=== PATIENT | female | born 1995 | race African-American/Black ===

== ENCOUNTER → 2016-09-11 | Outpatient (CLI) | payer BC, OTHER | LOC: EDBD → MW.CHOBGYN 09:59 | PROVIDERS: ATTEND Advanced Practice Midwife | DX: Z34.90 Encounter for supervision of normal pregnancy, unspecified, unspecified trimester (principal) | CPT/HCPCS: 36415; 82950; 85027; 86850 ==

== ENCOUNTER 2016-10-31 14:04 | Emergency (ER) | payer OTHER, SELFPAY ==
[2016-10-31] MEDS ORDERED: Albuterol 0.083% 2.5 MG/3 ML Neb Soln NEB ONE (14:14)
--- NOTE | 2016-10-31 14:15 | EDM.PDOC ---
ED HISTORY OF PRESENT ILLNESS - General Chief Complaint: Respiratory Problem Stated Complaint: HEART COMPLICATION Time Seen by Provider: 10/31/16 15:00 - History of Present Illness INITIAL COMMENTS - FREE TEXT/NARRATIVE: HISTORY AND PHYSICAL: History of present illness: Patient is a 20-year-old black female who is 35 weeks presents with shortness of breath and dizziness she states she noticed this today while she was at class she denies nausea vomiting abdominal pain abdominal cramping vaginal discharge bleeding any significant changes in peripheral edema headache visual disturbance or any other concern. There been no cough no fever no chills Review of systems: As per history of present illness and below otherwise all systems reviewed and negative. Past medical history: As per history of present illness and as reviewed below otherwise noncontributory. Surgical history: As per history of present illness and as reviewed below otherwise noncontributory. Social history: No reported history of drug or alcohol abuse. Family history: As per history of present illness and as reviewed below otherwise noncontributory. Physical exam: HEENT: Atraumatic, normocephalic, pupils reactive, negative for conjunctival pallor or scleral icterus, mucous membranes moist, throat clear, neck supple, nontender, trachea midline. Lungs: Clear to auscultation, breath sounds equal bilaterally, chest nontender. Heart: S1S2, regular, negative for clicks, rubs, or JVD. Abdomen: Soft, gravid uterus consistent with dates nontender heart tones in the. Negative for masses or hepatosplenomegaly. Negative for costovertebral tenderness. Pelvis: Stable nontender. Genitourinary: Deferred. Rectal: Deferred. Extremities: Atraumatic, negative for cords or calf pain. Neurovascular unremarkable. 1+ edema inferior extremity Neuro: Awake, alert, oriented. Cranial nerves II through XII unremarkable. Cerebellum unremarkable. Motor and sensory unremarkable throughout. Exam nonfocal. Diagnostics: CBC CMP BNP EKG chest x-ray with abdominal shield one view UA Therapeutics: Albuterol nebulizer Impression: #1 dyspnea #2 35 week intrauterine Definitive disposition and diagnosis as appropriate pending reevaluation and review of above. - Related Data Allergies/ADRs: Allergies Allergy/AdvReac Type Severity Reaction Status Date / Time No Known Allergies Allergy Verified 10/31/16 14:09 Home Meds: Home Meds . [No Known Home Meds] 08/22/15 [History] Past Medical History - Past Health History Medical/Surgical History: Denies Medical/Surgical History Psychiatric History: Reports: None Hematologic History: Reports: None Immunologic History: Reports: None Oncologic (Cancer) History: Reports: None - Infectious Disease History Infectious Disease History: Reports: None Social & Family History - Tobacco Use Smoking Status *Q: Never Smoker - Caffeine Use Caffeine Use: Reports: None - Recreational Drug Use Recreational Drug Use: No ED ROS GENERAL - Review of Systems Review Of Systems: ROS reveals no pertinent complaints other than HPI. ED EXAM, GENERAL - Physical Exam Exam: See Below Course - Vital Signs Text/Narrative:: Status with patient at length risks benefits regarding symptoms patient declined CT Angio to rule pulmonary embolism Chest x-ray states she feels better request discharge home does agree to followup with labor and delivery discussed case with licensed midwife who understands and will follow also Last Recorded V/S: Last Vital Signs Temp 36.4 C 10/31/16 14:09 Pulse 73 10/31/16 14:09 Resp 20 10/31/16 14:09 BP 123/99 H 10/31/16 14:09 Pulse Ox 100 10/31/16 14:09 - Orders/Labs/Meds Orders: Active Orders 24 hr Category Date Time Status EKG Documentation Completion [RC] STAT Care 10/31/16 14:14 Active RT Aerosol Therapy [RC] ASDIRECTED Care 10/31/16 14:15 Active Labs: Laboratory Tests 10/31/16 10/31/16 10/31/16 Range/Units 14:25 14:25 14:25 WBC 7.34 (4.0-11.0) K/uL RBC 4.22 L (4.30-5.90) M/uL Hgb 11.0 L (12.0-16.0) g/dL Hct 34.2 L (36.0-46.0) % MCV 81.0 (80.0-98.0) fL MCH 26.1 L (27.0-32.0) pg MCHC 32.2 (31.0-37.0) g/dL RDW Std Deviation 43.0 (28.0-62.0) fl RDW Coeff of Arelis 15 (11.0-15.0) % Plt Count 209 (150-400) K/uL MPV 9.60 (7.40-12.00) fL Neut % (Auto) 65.6 (48.0-80.0) % Lymph % (Auto) 22.8 (16.0-40.0) % Zavala % (Auto) 10.5 (0.0-15.0) % Eos % (Auto) 1.0 (0.0-7.0) % Baso % (Auto) 0.1 (0.0-1.5) % Neut # (Auto) 4.8 (1.4-5.7) K/uL Lymph # (Auto) 1.7 (0.6-2.4) K/uL Zavala # (Auto) 0.8 (0.0-0.8) K/uL Eos # (Auto) 0.1 (0.0-0.7) K/uL Baso # (Auto) 0.0 (0.0-0.1) K/uL Nucleated RBC % 0.0 /100WBC Nucleated RBCs # 0 K/uL Sodium 135 L (136-146) mmol/L Potassium 3.7 (3.5-5.1) mmol/L Chloride 107 (98-110) mmol/L Carbon Dioxide 22 (21-31) mmol/L BUN 4 L (6.0-23.0) mg/dL Creatinine 0.7 (0.6-1.5) mg/dL Est Cr Clr Drug Dosing 119.01 mL/min Estimated GFR (MDRD) > 60.0 ml/min Glucose 77 (60-110) mg/dL Calcium 9.1 (8.8-10.8) mg/dL Total Bilirubin 0.4 (0.1-1.5) mg/dL AST 20 (5-40) IU/L ALT 12 (8-54) IU/L Alkaline Phosphatase 264 H (40-150) B-Natriuretic Peptide 20 (<100) PG/ML Total Protein 6.5 (6.0-8.0) g/dL Albumin 3.4 L (3.5-5.0) g/dL Globulin 3.1 (2.0-3.5) g/dL Albumin/Globulin Ratio 1.1 L (1.3-2.8) Meds: Medications Discontinued Medications Generic Name Dose Route Start Last Admin Trade Name Freq PRN Reason Stop Dose Admin Albuterol 2.5 mg 10/31/16 14:14 10/31/16 14:24 Proventil Neb Soln NEB 10/31/16 14:15 2.5 mg ONETIME ONE Administration Departure - Departure Time of Disposition: 14:59 Disposition: Home, Self-Care 01 Condition: good Clinical Impression: Dyspnea, Third trimester Forms: ED Department Discharge Additional Instructions: The following information is given to patients seen in the emergency department who are being discharged to home. This information is to outline your options for follow-up care. We provide all patients seen in our emergency department with a follow-up referral. The need for follow-up, as well as the timing and circumstances, are variable depending upon the specifics of your emergency department visit. If you don't have a primary care physician on staff, we will provide you with a referral. We always advise you to contact your personal physician following an emergency department visit to inform them of the circumstance of the visit and for follow-up with them and/or the need for any referrals to a consulting specialist. The emergency department will also refer you to a specialist when appropriate. This referral assures that you have the opportunity for followup care with a specialist. All of these measure are taken in an effort to provide you with optimal care, which includes your followup. Under all circumstances we always encourage you to contact your private physician who remains a resource for coordinating your care. When calling for followup care, please make the office aware that this follow-up is from your recent emergency room visit. If for any reason you are refused follow-up, please contact the [facility] emergency department at and asked to speak to the emergency department charge nurse. Followup labor and delivery as discussed return as needed as discussed - My Orders Last 24 Hours: My Active Orders 10/31/16 14:14 EKG Documentation Completion [RC] STAT 10/31/16 14:15 RT Aerosol Therapy [RC] ASDIRECTED - Assessment/Plan Last 24 Hours: My Active Orders 10/31/16 14:14 EKG Documentation Completion [RC] STAT 10/31/16 14:15 RT Aerosol Therapy [RC] ASDIRECTED
[2016-10-31 14:49] LABS: CHLORIDE,CL 107 mmol/L (98-110); SODIUM,NA 135 mmol/L (136-146)
[2016-10-31 15:27] VITALS: BP 113/72
== END 2016-10-31 15:23 | disposition home or self-care (01) ==
LOC: EDBD → MW.ED 14:04
DX: O99.513 Diseases of the respiratory system complicating pregnancy, third trimester (principal); R06.00 Dyspnea, unspecified
CPT/HCPCS: 36415; 80053; 83880; 85025; 93005; 94664; 99283; 99285-25

== ENCOUNTER 2016-10-31 15:42 | Outpatient (CLI) | payer OTHER, SELFPAY | END 2016-10-31 16:50 | disposition home or self-care (01) | LOC: EDBD → MW.OBCHECK 15:42 → MW.OB 15:43 → MW.OBCHECK 16:50 | PROVIDERS: ATTEND Obstetrics & Gynecology | DX: Z34.93 Encounter for supervision of normal pregnancy, unspecified, third trimester (principal) | CPT/HCPCS: 59025 ==

== ENCOUNTER → 2016-11-07 | Outpatient (CLI) | payer MEDICAID, OTHER | LOC: EDBD → MW.CHOBGYN 13:21 | PROVIDERS: ATTEND Advanced Practice Midwife | DX: Z34.90 Encounter for supervision of normal pregnancy, unspecified, unspecified trimester (principal) | CPT/HCPCS: 87081 ==

== ENCOUNTER → 2016-11-18 | Outpatient (CLI) | payer MEDICAID, OTHER ==
[2016-11-18 14:29] LABS: CHLORIDE,CL 108 mmol/L (98-110); SODIUM,NA 137 mmol/L (136-146)
== END ==
LOC: EDBD → MW.CHOBGYN 13:34
PROVIDERS: ATTEND Nurse Practitioner Women's Health
DX: R19.7 Diarrhea, unspecified (principal)
CPT/HCPCS: 36415; 80053; 81001; 83630; 85025; 87046; 87328; 87329; 87899

== ENCOUNTER 2016-12-05 16:13 | Inpatient (IN) | payer MEDICAID ==
[2016-12-05] MEDS ORDERED: Water For Irrigation,Sterile 1,000 ML Container IRR PRN (17:38)
[2016-12-05] MEDS ORDERED: Misoprostol 25 MCG (1/4 of 100 MCG) Tab VAG PRN ×2 (17:38→22:00)
[2016-12-05] MEDS ORDERED: Sodium Chloride 0.9% 10 ML Syringe FLUSH PRN (17:38)
[2016-12-05] MEDS ORDERED: Carboprost Tromethamine 250 MCG/1 ML Amp IM PRN (17:38)
[2016-12-05] MEDS ORDERED: Lidocaine 1% 50 ML MDV INJECT PRN (17:38)
[2016-12-05] MEDS ORDERED: Misoprostol 200 MCG Tab PO PRN (17:38)
[2016-12-05] MEDS ORDERED: Sodium Chloride 0.9% 2.5 ML Syringe FLUSH PRN (17:38)
[2016-12-05] MEDS ORDERED: Nalbuphine 10 MG/1 ML Vial IVPUSH PRN (17:38)
[2016-12-05] MEDS ORDERED: Terbutaline 1 MG/ML SDV SUBCUT PRN (17:38)
[2016-12-05] MEDS ORDERED: Butorphanol 1 MG/ML SDV IVPUSH PRN (17:38)
[2016-12-05] MEDS ORDERED: Methylergonovine 0.2 MG/1 ML Amp IM PRN (17:38)
[2016-12-05] MEDS ORDERED: Misoprostol 25 MCG (1/4 of 100 MCG) Tab PO SCH (17:45)
[2016-12-05] MEDS ORDERED: Oxytocin/Lactated Ringers 30 UNIT/500 ML BAG IV SCH (17:45)
[2016-12-05] MEDS: Lactated Ringers 1,000 ML IV SCH (18:15)
--- NOTE | 2016-12-05 18:56 | PCM.LDHP ---
L&D History of Present Illness - General Date of Service: 12/05/16 Admit Problem/Dx: Patient Status Order with Admit Dx/Problem 12/05/16 16:41 Patient Status [ADT] Routine 12/05/16 17:38 Patient Status [ADT] Routine Admission Diagnosis/Problem Admission Diagnosis/Problem - planned Source of Information: Patient History Limitations: Reports: No Limitations - History of Present Illness Improves with: Reports: None Worsens with: Reports: None Associated Symptoms: Reports: N - Related Data Allergies/Adverse Reactions: Allergies Allergy/AdvReac Type Severity Reaction Status Date / Time No Known Allergies Allergy Verified 10/31/16 14:09 Home Medications: Home Meds . 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) Other OB/BYN History: Hx of Chlamydia during this Psychiatric History: Reports: None Hematologic History: Reports: None Immunologic History: Reports: None Oncologic (Cancer) History: Reports: None - Infectious Disease History Infectious Disease History: Reports: None - Past Surgical History Respiratory Surgical History: Reports: None Female Surgical History: Reports: None Social & Family History - Family History Family Medical History: Noncontributory Dermatologic: Reports: None - Tobacco Use Smoking Status *Q: Never Smoker Second Hand Smoke Exposure: No - Caffeine Use Caffeine Use: Reports: Coffee - Recreational Drug Use Recreational Drug Use: No H&P Review of Systems - Review of Systems: Review Of Systems: See Below General: Reports: No Symptoms HEENT: Reports: No Symptoms Pulmonary: Reports: No Symptoms Cardiovascular: Reports: No Symptoms Gastrointestinal: Reports: No Symptoms Genitourinary: Reports: No Symptoms Musculoskeletal: Reports: No Symptoms Skin: Reports: No Symptoms Psychiatric: Reports: No Symptoms Neurological: Reports: No Symptoms Hematologic/Lymphatic: Reports: No Symptoms Immunologic: Reports: No Symptoms L&D Exam - Exam Exam: See Below - Vital Signs Weight: 93.894 kg - OB Specific Contraction Intensity: Mild Movement: Active Heart Tones: Present Presentation: Vertex - Barton Score Barton Score Effacement: 31-50% Barton Score Dilation: 1-2 cm Barton Score 's Station: -3 - Patient Data Lab Results last 24 hrs: Laboratory Results - last 24 hr 12/05/16 12/05/16 Range/Units 16:35 18:10 WBC 8.51 (4.0-11.0) K/uL RBC 4.52 (4.30-5.90) M/uL Hgb 11.6 L (12.0-16.0) g/dL Hct 35.7 L (36.0-46.0) % MCV 79.0 L (80.0-98.0) fL MCH 25.7 L (27.0-32.0) pg MCHC 32.5 (31.0-37.0) g/dL RDW Std Deviation 46.0 (28.0-62.0) fl RDW Coeff of Arelis 16 H (11.0-15.0) % Plt Count 245 (150-400) K/uL MPV 10.50 (7.40-12.00) fL Nucleated RBC % 0.3 /100WBC Nucleated RBCs # 0 K/uL Membrane Rupture POSITIVE Result Diagrams: 12/05/16 18:10 Problem List Initiated/Reviewed/Updated: Yes Orders Last 24hrs: Active Orders 24 hr Category Date Time Status Patient Status [ADT] Routine ADT 12/05/16 16:41 Active Patient Status [ADT] Routine ADT 12/05/16 17:38 Active Bedrest Bathroom Privileges [RC] Care 12/05/16 17:38 Active Communication Order [RC] ASDIRECTED Care 12/05/16 17:38 Active Communication Order [RC] ASDIRECTED Care 12/05/16 17:38 Active Communication Order [RC] ASDIRECTED Care 12/05/16 17:38 Active Heart Tones [RC] Care 12/05/16 17:38 Active Non Stress Test [RC] PER UNIT ROUTINE Care 12/05/16 16:41 Active Non Stress Test [RC] PER UNIT ROUTINE Care 12/05/16 17:38 Active May Shower [RC] ASDIRECTED Care 12/05/16 17:38 Active Notify Provider [RC] PRN Care 12/05/16 17:38 Active Notify Provider [RC] PRN Care 12/05/16 17:38 Active Notify Provider [RC] PRN Care 12/05/16 17:38 Active Notify Provider [RC] STAT Care 12/05/16 17:38 Active Oxygen Therapy [RC] ASDIRECTED Care 12/05/16 17:38 Active Up ad Doretha [RC] Care 12/05/16 17:38 Active Up ad Doretha [RC] ASDIRECTED Care 12/05/16 16:41 Active Vaginal Exam [RC] Click To Edit Care 12/05/16 16:41 Active Vaginal Exam [RC] PRN Care 12/05/16 17:38 Active Vaginal Exam [RC] PRN Care 12/05/16 17:38 Active Vital Signs [RC] PER UNIT ROUTINE Care 12/05/16 16:41 Active Vital Signs [RC] PER UNIT ROUTINE Care 12/05/16 17:38 Active Vital Signs [RC] PER UNIT ROUTINE Care 12/05/16 17:38 Active Clear Liquid Diet [DIET] Diet 12/05/16 Dinner Active Clear Liquid Diet [DIET] Diet 12/05/16 Dinner Active TYPE AND SCREEN [BBK] Routine Lab 12/05/16 18:10 Received Butorphanol [Stadol] Med 12/05/16 17:38 Active 1 mg IVPUSH Q1H PRN Carboprost Tromethamine [Hemabate DS] Med 12/05/16 17:38 Active 250 mcg IM ASDIRECTED PRN Lactated Ringers [Ringers, Lactated] 1,000 ml Med 12/05/16 17:45 Active IV ASDIRECTED Lidocaine 1% [Xylocaine 1%] Med 12/05/16 17:38 Active 50 ml INJECT .ONCE PRN Methylergonovine [Methergine] Med 12/05/16 17:38 Active 0.2 mg IM ASDIRECTED PRN Misoprostol [Cytotec] Med 12/05/16 17:38 Active 200 mcg PO .ONCE PRN Misoprostol [Cytotec] Med 12/05/16 17:45 Active 25 mcg PO Q4H Misoprostol [Cytotec] Med 12/05/16 17:38 Active 25 mcg VAG Q4H PRN Nalbuphine [Nubain] Med 12/05/16 17:38 Active 10 mg IVPUSH Q1H PRN Sodium Chloride 0.9% [Saline Flush] Med 12/05/16 17:38 Active 10 ml FLUSH ASDIRECTED PRN Sodium Chloride 0.9% [Saline Flush] Med 12/05/16 17:38 Active 2.5 ml FLUSH ASDIRECTED PRN Terbutaline [Brethine] Med 12/05/16 17:38 Active 0.25 mg SUBCUT ASDIRECTED PRN Water For Irrigation,Sterile [Sterile Water for Med 12/05/16 17:38 Active Irrigation] 1,000 ml IRR ASDIRECTED PRN Scalp Electrode [WOMSER] Per Unit Routine Oth 12/05/16 17:38 Ordered Medication Administration Instruction [OM.PC] Q3H Oth 12/05/16 17:45 Ordered Peripheral IV Insertion Adult [OM.PC] Routine Oth 12/05/16 17:38 Ordered Resuscitation Status Routine Resus Stat 12/05/16 16:41 Ordered Medication Orders Butorphanol Tartrate (Stadol) 1 mg IVPUSH Q1H PRN PRN Reason: Pain Carboprost Tromethamine (Hemabate Ds) 250 mcg IM ASDIRECTED PRN PRN Reason: Post Hemorrhage Lactated Ringer's (Ringers, Lactated) 1,000 mls @ 150 mls/hr IV ASDIRECTED GURDEEP Last Admin: 12/05/16 18:15 Dose: 150 mls/hr Lidocaine HCl (Xylocaine 1%) 50 ml INJECT .ONCE PRN PRN Reason: Laceration repair Methylergonovine Maleate (Methergine) 0.2 mg IM ASDIRECTED PRN PRN Reason: Post Hemorrhage Misoprostol (Cytotec) 200 mcg PO .ONCE PRN PRN Reason: Post Hemorrhage Misoprostol (Cytotec) 25 mcg VAG Q4H PRN PRN Reason: Cervical Ripening Stop: 12/06/16 21:39 Misoprostol (Cytotec) 25 mcg PO Q4H [facility] Nalbuphine HCl (Nubain) 10 mg IVPUSH Q1H PRN PRN Reason: Pain (severe 7-10) Stop: 12/05/16 19:39 Sodium Chloride (Saline Flush) 10 ml FLUSH ASDIRECTED PRN PRN Reason: Keep Vein Open Sodium Chloride (Saline Flush) 2.5 ml FLUSH ASDIRECTED PRN PRN Reason: Keep Vein Open Sterile Water (Sterile Water For Irrigation) 1,000 ml IRR ASDIRECTED PRN PRN Reason: delivery Terbutaline Sulfate (Brethine) 0.25 mg SUBCUT ASDIRECTED PRN PRN Reason: Tacysystole Assessment/Plan Comment:: Term SROM confirmed. Plan admit possible induction.
[2016-12-05] MEDS: Misoprostol 25 MCG (1/4 of 100 MCG) Tab PO SCH (22:19)
[2016-12-06] MEDS: Lactated Ringers 1,000 ML IV SCH ×5 (01:07→20:20)
[2016-12-06] MEDS ORDERED: Oxytocin/Lactated Ringers 0 UNIT/0 ML BAG ONE (03:11)
[2016-12-06] MEDS ORDERED: fentaNYL 100 MCG/2 ML SDV ONE ×3 (04:17→08:39)
[2016-12-06] MEDS ORDERED: Ropivacaine HCl/PF 100 ML ONE (04:17)
--- NOTE | 2016-12-06 04:57 | PCM.PREANE ---
Preanesthetic Assessment - Anesthesia/Transfusion/Family Hx Anesthesia History: No Prior Anesthesia Family History of Anesthesia Reaction: No Transfusion History: No Prior Transfusion(s) - Review of Systems General: No Symptoms Pulmonary: No Symptoms Cardiovascular: No Symptoms Gastrointestinal: No symptoms Neurological: No Symptoms Other: Reports: Anxiety - Physical Assessment NPO Status Date: 12/06/16 NPO Status Time: 04:55 (sips/chips) Height: 5 ft 5 in Weight: 207 lb ASA Class: 2 Mental Status: Alert & Oriented x3 Airway Class: Mallampati = 2 Dentition: Reports: Normal Dentition Thyro-Mental Finger Breadths: 3 Mouth Opening Finger Breadths: 3 ROM/Head Extension: Full Lungs: Clear to auscultation, Normal respiratory effort Cardiovascular: Regular Rate, Regular Rhythm - Lab Values: Laboratory Last Values WBC 8.51 K/uL (4.0-11.0) 12/05/16 18:10 RBC 4.52 M/uL (4.30-5.90) 12/05/16 18:10 Hgb 11.6 g/dL (12.0-16.0) L 12/05/16 18:10 Hct 35.7 % (36.0-46.0) L 12/05/16 18:10 MCV 79.0 fL (80.0-98.0) L 12/05/16 18:10 MCH 25.7 pg (27.0-32.0) L 12/05/16 18:10 MCHC 32.5 g/dL (31.0-37.0) 12/05/16 18:10 RDW Std Deviation 46.0 fl (28.0-62.0) 12/05/16 18:10 RDW Coeff of Arelis 16 % (11.0-15.0) H 12/05/16 18:10 Plt Count 245 K/uL (150-400) 12/05/16 18:10 MPV 10.50 fL (7.40-12.00) 12/05/16 18:10 Nucleated RBC % 0.3 /100WBC 12/05/16 18:10 Nucleated RBCs # 0 K/uL 12/05/16 18:10 Membrane Rupture POSITIVE 12/05/16 16:35 Blood Type O POSITIVE 12/05/16 18:10 Antibody Screen NEGATIVE 12/05/16 18:10 - Allergies Allergies/Adverse Reactions: Allergies Allergy/AdvReac Type Severity Reaction Status Date / Time No Known Allergies Allergy Verified 10/31/16 14:09 - Blood Blood Available: No Product(s) Available: None - Anesthesia Plan Free Text/Narrative:: Labor Epidural Pre-Op Medication Ordered: None - Acknowledgements Anesthesia Type Planned: Epidural Pt an Appropriate Candidate for the Planned Anesthesia: Yes Alternatives and Risks of Anesthesia Discussed w Pt/Guardian: Yes Pt/Guardian Understands and Agrees with Anesthesia Plan: Yes PreAnesthesia Questionnaire - Past Health History Medical/Surgical History: Denies Medical/Surgical History Cardiovascular History: Reports: None 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 History: Reports: 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 [No Known Home Meds] 08/22/15 [History] - CURRENT (IN HOUSE) MEDS Current Meds: Current Medications Butorphanol Tartrate (Stadol) 1 mg IVPUSH Q1H PRN PRN Reason: Pain Carboprost Tromethamine (Hemabate Ds) 250 mcg IM ASDIRECTED PRN PRN Reason: Post Hemorrhage Lactated Ringer's (Ringers, Lactated) 1,000 mls @ 150 mls/hr IV ASDIRECTED GURDEEP Last Admin: 12/06/16 04:11 Dose: 999 mls/hr Lidocaine HCl (Xylocaine 1%) 50 ml INJECT .ONCE PRN PRN Reason: Laceration repair Methylergonovine Maleate (Methergine) 0.2 mg IM ASDIRECTED PRN PRN Reason: Post Hemorrhage Misoprostol (Cytotec) 200 mcg PO .ONCE PRN PRN Reason: Post Hemorrhage Misoprostol (Cytotec) 25 mcg VAG Q4H PRN PRN Reason: Cervical Ripening Stop: 12/07/16 02:01 Last Admin: 12/05/16 22:06 Dose: 25 mcg Misoprostol (Cytotec) 25 mcg PO Q4H GURDEEP Last Admin: 12/05/16 22:19 Dose: 25 mcg Sodium Chloride (Saline Flush) 10 ml FLUSH ASDIRECTED PRN PRN Reason: Keep Vein Open Sodium Chloride (Saline Flush) 2.5 ml FLUSH ASDIRECTED PRN PRN Reason: Keep Vein Open Sterile Water (Sterile Water For Irrigation) 1,000 ml IRR ASDIRECTED PRN PRN Reason: delivery Terbutaline Sulfate (Brethine) 0.25 mg SUBCUT ASDIRECTED PRN PRN Reason: Tacysystole Discontinued Medications Fentanyl (Sublimaze) Confirm Administered Dose 100 mcg .ROUTE .STK-MED ONE Stop: 12/06/16 04:18 Oxytocin/Lactated Ringer's (Pitocin In Lr 30 Units/500 Ml) 30 unit in 500 mls @ 999 mls/hr IV TITRATE GURDEEP PRN Reason: 999 MUNITS/MIN Stop: 12/05/16 18:16 Oxytocin/Lactated Ringer's (Pitocin In Lr 30 Units/500 Ml) Confirm Administered Dose 30 unit in 500 mls @ as directed .ROUTE .STK-MED ONE Stop: 12/06/16 03:12 Ropivacaine (Naropin 0.2%) Confirm Administered Dose 100 mls @ as directed .ROUTE .STK-MED ONE Stop: 12/06/16 04:18 Misoprostol (Cytotec) 25 mcg VAG Q4H PRN PRN Reason: Cervical Ripening Stop: 12/06/16 21:39 Misoprostol (Cytotec) 25 mcg PO Q4H GURDEEP Nalbuphine HCl (Nubain) 10 mg IVPUSH Q1H PRN PRN Reason: Pain (severe 7-10) Stop: 12/05/16 19:39
[2016-12-06] MEDS ORDERED: Citric Acid/Sodium Citrate Solution 30 ML Cup ONE (07:59)
[2016-12-06] MEDS ORDERED: Bupivacaine 0.5% 10 ML SDV ONE (08:05)
[2016-12-06] MEDS ORDERED: ceFAZolin 1 GM Vial ONE (08:20)
[2016-12-06] MEDS ORDERED: Oxytocin 10 Units/1 ML SDV ONE ×2 (08:39→08:51)
[2016-12-06] MEDS ORDERED: Morphine PF 10 MG/10 ML SDV ONE (08:47)
[2016-12-06] MEDS ORDERED: Octyl 2-Cyanoacrylate 1 Tube ONE (08:56)
[2016-12-06] MEDS ORDERED: Ibuprofen 800 MG Tab PO PRN (08:58)
[2016-12-06] MEDS ORDERED: Lanolin 100% Cream 7 GM Tube TOP PRN (08:58)
[2016-12-06] MEDS ORDERED: Bisacodyl 10 MG Supp RECTAL PRN (08:58)
[2016-12-06] MEDS ORDERED: Acetaminophen/oxyCODONE 325-5 MG Tab PO PRN ×2 (08:58→09:23)
[2016-12-06] MEDS ORDERED: Ondansetron 4 MG/2 ML SDV IV PRN (08:58)
--- NOTE | 2016-12-06 09:02 | PCM.OPNOTE ---
- General Post-Op/Procedure Note Date of Surgery/Procedure: 12/06/16 Operative Procedure(s): Primary C/Section Pre Op Diagnosis: Term pregnancyfetal intolarance Post-Op Diagnosis: Same Anesthesia Technique: Epidural Primary Surgeon: Petros Ochoa Nurse Consultant: Radha Espinoza EBL in mLs: 700 Complications: None Condition: Good Free Text/Narrative:: Intake & Output 12/05/16 12/06/16 12/06/16 22:59 06:59 14:59 Intake Total 1999 Balance 1999
[2016-12-06] MEDS ORDERED: Naloxone 0.4 MG/ML Syringe IVPUSH PRN (09:24)
[2016-12-06] MEDS ORDERED: Nalbuphine 10 MG/1 ML Vial IVPUSH PRN (09:24)
[2016-12-06] MEDS: Ketorolac 30 MG/ML SDV IVPUSH SCH ×3 (09:29→22:35)
--- NOTE | 2016-12-06 09:44 | PCM.POSTAN ---
POST ANESTHESIA ASSESSMENT - MENTAL STATUS Mental Status: alert, oriented - VITAL SIGNS Pulse Rate: 74 SaO2: 94 Resp Rate: 14 Blood Pressure: 126/97 - RESPIRATORY Respiratory Status: respiratory rate WNL, airway patent, O2 saturation stable - CARDIOVASCULAR CV Status: pulse rate WNL, blood pressure stable - GASTROINTESTINAL GI Status: no symptoms - PAIN Pain Score: 0 ("just some itching" - doesn't want medication at this time) - POST OP HYDRATION Hydration Status: adequate & stable - OBSERVATIONS Free Text/Narrative:: Pt stable with no nausea or pain at this time.
--- NOTE | 2016-12-06 10:52 | OR ---
SURGEON: Petros Ochoa MD DATE OF PROCEDURE: POSTOPERATIVE DIAGNOSES: Term , category II heart rate, intolerance. POSTOPERATIVE DIAGNOSES: Term , category II heart rate, intolerance. OPERATION PERFORMED: Primary low-transverse section. 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 Felipe. ESTIMATED BLOOD LOSS: 700 mL. COMPLICATION: None. FINDINGS: Female fetus. score reported to be 9 and 10. Normal uterus, tubes, and ovary. Two nuchal cords were noted around the neck. INDICATION FOR SURGERY: This patient is term. She is primarily is followed by our nurse yarder, Radha Espinoza. The patient did have a spontaneous rupture of the membrane at 1:00 p.m. yesterday, December 05. The patient was admitted for an induction. She was induced with the Cytotec. She required one dose of the Cytotec and she started having contraction on a regular basis. She progressed to 4 cm. She had epidural anesthesia for labor analgesia. The patient continued to progress. She was 8 to 9, and she started having a category II heart rate with the deceleration and variable deceleration with every single contraction and slower and slow recovery. I assessed the patient and at the time of my assessment, she was complete and she was 0 station. We attempted to have the patient push in a hope that she can bring the baby down to do a vacuum extraction. However, category II, intolerance, and variable deceleration continued and the patient at that time was not amenable to vacuum extraction. So, a decision was made to do a primary low transverse section. PROCEDURE IN DETAIL: The patient was brought to the OR, properly identified, and after adequate level of epidural anesthesia, with a Sears catheter in the bladder, the patient was prepped and draped in sterile fashion as usual. Low transverse Pfannenstiel skin incision was done. The Dick's fascia and rectus fascia were opened in direction of the incision. The 2 recti muscles were and peritoneal cavity was entered. Bladder flap was raised in the usual manner, a low transverse uterine incision was done, and extended manually with the hand. The fetus was in the vertex position. There was a hand to the side of the fetus, it will make a compound presentation, and there were two nuchal cords. The fetus was delivered and cried immediately after clamping the cord. The fetus was handed to Dr. Bg Williamson, the cement truck driver who was present at the time of the delivery and later on the score reported to be 9 and 10. Placenta delivered spontaneous, complete, and intact and repair of the lower uterine segment was done with 2-0 Vicryl continuous interlocking in 2 layers. Reperitonealization done with 3-0 Vicryl continuous and then the peritoneal cavity evacuated completely from all the blood and blood clots and closed with 3- 0 Vicryl continuous suture. The rectus fascia was closed with #1 PDS double strand, and the Dick's fascia was closed with 3-0 Vicryl continuous, the skin closed in with 5-0 monofilament in the subcuticular fashion with Dermabond. Instrument and sponge count was correct. The patient tolerated the procedure well and went to recovery room in stable general condition. DAWNA / TAYLOR /[id number]
[2016-12-06] MEDS: Misoprostol 25 MCG (1/4 of 100 MCG) Tab PO SCH ×2 (12:36→12:37)
[2016-12-06] MEDS: Docusate Sodium 100 MG Cap PO SCH ×2 (12:37→22:35)
[2016-12-06] MEDS: diphenhydrAMINE 50 MG/ML SDV IVPUSH PRN (13:09)
[2016-12-07] MEDS: diphenhydrAMINE 50 MG/ML SDV IVPUSH PRN (01:04)
--- NOTE | 2016-12-07 01:27 | PCM48HPAN ---
Post Anesthesia Note - EVALUATION WITHIN 48HRS OF ANESTHETIC Vital Signs in Normal Range: Yes Patient Participated in Evaluation: Yes Respiratory Function Stable: Yes Airway Patent: Yes Cardiovascular Function Stable: Yes Hydration Status Stable: Yes Pain Control Satisfactory: Yes Nausea and Vomiting Control Satisfactory: Yes Mental Status Recovered: Yes - COMMENTS/OBSERVATIONS Free Text/Narrative:: Pt's only complaint has been itching - benadryl has been given and pt states it helps her sleep. No apparent anesthesia complications.
[2016-12-07] MEDS: Ketorolac 30 MG/ML SDV IVPUSH SCH ×2 (04:32→10:51)
[2016-12-07] MEDS: Docusate Sodium 100 MG Cap PO SCH ×2 (08:04→21:00)
--- NOTE | 2016-12-07 08:21 | PCM.PNPP ---
- General Info Date of Service: 12/07/16 Functional Status: Reports: pain controlled - Review of Systems General: Reports: No Symptoms HEENT: Reports: no symptoms Pulmonary: Reports: no symptoms Cardiovascular: Reports: No Symptoms Gastrointestinal: Reports: No symptoms Genitourinary: Reports: no symptoms Musculoskeletal: Reports: no symptoms Skin: Reports: no symptoms Neurological: Reports: No Symptoms Psychiatric: Reports: no symptoms - General Info Date of Service: 12/07/16 - Patient Data Vital Signs - most recent: Last Vital Signs Temp 36.4 C 12/07/16 04:00 Pulse 90 12/07/16 04:00 Resp 19 12/07/16 06:00 BP 115/72 12/07/16 04:00 Pulse Ox 98 12/07/16 06:00 Weight - most recent: 93.894 kg I&O - last 24 hours: Intake & Output 12/06/16 12/07/16 12/07/16 22:59 06:59 14:59 Intake Total 1000 1000 Output Total 1350 1000 Balance -350 0 Lab Results - last 24 hrs: Laboratory Results - last 24 hr 12/07/16 Range/Units 06:09 Hgb 9.6 L (12.0-16.0) g/dL Hct 29.6 L (36.0-46.0) % Med Orders - Current: Current Medications Bisacodyl (Dulcolax) 10 mg RECTAL .ONCE PRN PRN Reason: Constipation Diphenhydramine HCl (Benadryl) 25 mg IVPUSH Q6H PRN PRN Reason: Itching or Nausea Last Admin: 12/07/16 01:04 Dose: 25 mg Docusate Sodium (Colace) 100 mg PO BID [facility] Last Admin: 12/07/16 08:04 Dose: 100 mg Emollient Ointment (Lansinoh Hpa) 0 gm TOP ASDIRECTED PRN PRN Reason: Sore Nipples Lactated Ringer's (Ringers, Lactated) 1,000 mls @ 125 mls/hr IV ASDIRECTED [facility] Last Admin: 12/06/16 20:20 Dose: 125 mls/hr Ibuprofen (Motrin) 800 mg PO Q8H PRN PRN Reason: mild pain or fever Ketorolac Tromethamine (Toradol) 30 mg IVPUSH Q6H [facility] Stop: 12/07/16 09:01 Last Admin: 12/07/16 04:32 Dose: 30 mg Nalbuphine HCl (Nubain) 2.5 mg IVPUSH Q3H PRN PRN Reason: Pruritis Stop: 12/07/16 09:25 Last Admin: 12/06/16 12:26 Dose: 2.5 mg Naloxone HCl (Narcan) 0.1 mg IVPUSH ONETIME PRN PRN Reason: RR<6 WITH STIMULATION Stop: 12/07/16 09:25 Ondansetron HCl (Zofran) 4 mg IV Q4H PRN PRN Reason: Nausea/Vomiting Last Admin: 12/06/16 11:07 Dose: 4 mg Oxycodone/Acetaminophen (Percocet 325-5 Mg) 1 tab PO Q4H PRN PRN Reason: Pain (moderate 4-6) Oxycodone/Acetaminophen (Percocet 325-5 Mg) 2 tab PO Q4H PRN PRN Reason: Pain (moderate 4-6) Oxycodone/Acetaminophen (Percocet 325-5 Mg) 1 tab PO .Q4HRS PRN PRN Reason: Breakthrough Pain Stop: 12/07/16 09:23 Last Admin: 12/07/16 08:04 Dose: 1 tab Sodium Chloride (Saline Flush) 2.5 ml FLUSH ASDIRECTED PRN PRN Reason: Keep Vein Open Discontinued Medications Bupivacaine HCl (Sensorcaine-Mpf 0.5%) Confirm Administered Dose 20 ml .ROUTE .STK-MED ONE Stop: 12/06/16 08:06 Last Admin: 12/06/16 12:38 Dose: Not Given Butorphanol Tartrate (Stadol) 1 mg IVPUSH Q1H PRN PRN Reason: Pain Carboprost Tromethamine (Hemabate Ds) 250 mcg IM ASDIRECTED PRN PRN Reason: Post Hemorrhage Cefazolin Sodium (Ancef) Confirm Administered Dose 2 gm .ROUTE .STK-MED ONE Stop: 12/06/16 08:21 Citric Acid/Sodium Citrate (Bicitra Solution) Confirm Administered Dose 30 ml .ROUTE .STK-MED ONE Stop: 12/06/16 08:00 Last Admin: 12/06/16 12:38 Dose: Not Given Fentanyl (Sublimaze) Confirm Administered Dose 100 mcg .ROUTE .STK-MED ONE Stop: 12/06/16 04:18 Last Admin: 12/06/16 12:38 Dose: Not Given Fentanyl (Sublimaze) Confirm Administered Dose 100 mcg .ROUTE .STK-MED ONE Stop: 12/06/16 08:05 Last Admin: 12/06/16 12:38 Dose: Not Given Fentanyl (Sublimaze) Confirm Administered Dose 100 mcg .ROUTE .STK-MED ONE Stop: 12/06/16 08:40 Lactated Ringer's (Ringers, Lactated) 1,000 mls @ 150 mls/hr IV ASDIRECTED [facility] Last Admin: 12/06/16 07:43 Dose: 150 mls/hr Oxytocin/Lactated Ringer's (Pitocin In Lr 30 Units/500 Ml) 30 unit in 500 mls @ 999 mls/hr IV TITRATE [facility] PRN Reason: 999 MUNITS/MIN Stop: 12/05/16 18:16 Last Admin: 12/06/16 12:35 Dose: Not Given Oxytocin/Lactated Ringer's (Pitocin In Lr 30 Units/500 Ml) Confirm Administered Dose 30 unit in 500 mls @ as directed .ROUTE .[facility]-MED ONE Stop: 12/06/16 03:12 Last Admin: 12/06/16 12:35 Dose: Not Given Ropivacaine (Naropin 0.2%) Confirm Administered Dose 100 mls @ as directed .ROUTE .[facility]-MED ONE Stop: 12/06/16 04:18 Last Admin: 12/06/16 12:38 Dose: Not Given Lidocaine HCl (Xylocaine 1%) 50 ml INJECT .ONCE PRN PRN Reason: Laceration repair Methylergonovine Maleate (Methergine) 0.2 mg IM ASDIRECTED PRN PRN Reason: Post Hemorrhage Misoprostol (Cytotec) 200 mcg PO .ONCE PRN PRN Reason: Post Hemorrhage Misoprostol (Cytotec) 25 mcg VAG Q4H PRN PRN Reason: Cervical Ripening Stop: 12/06/16 21:39 Misoprostol (Cytotec) 25 mcg PO Q4H [facility] Last Admin: 12/06/16 12:36 Dose: Not Given Misoprostol (Cytotec) 25 mcg VAG Q4H PRN PRN Reason: Cervical Ripening Stop: 12/07/16 02:01 Last Admin: 12/05/16 22:06 Dose: 25 mcg Misoprostol (Cytotec) 25 mcg PO Q4H [facility] Last Admin: 12/06/16 12:37 Dose: Not Given Morphine Sulfate (Duramorph Pf) Confirm Administered Dose 10 mg .ROUTE .STK-MED ONE Stop: 12/06/16 08:48 Nalbuphine HCl (Nubain) 10 mg IVPUSH Q1H PRN PRN Reason: Pain (severe 7-10) Stop: 12/05/16 19:39 Octyl Cyanoacrylate (Dermabond Advance) Confirm Administered Dose 1 applic .ROUTE .STK-MED ONE Stop: 12/06/16 08:57 Oxytocin (Pitocin) Confirm Administered Dose 10 unit .ROUTE .STK-MED ONE Stop: 12/06/16 08:40 Oxytocin (Pitocin) Confirm Administered Dose 20 unit .ROUTE .STK-MED ONE Stop: 12/06/16 08:52 Sodium Chloride (Saline Flush) 10 ml FLUSH ASDIRECTED PRN PRN Reason: Keep Vein Open Sterile Water (Sterile Water For Irrigation) 1,000 ml IRR ASDIRECTED PRN PRN Reason: delivery Terbutaline Sulfate (Brethine) 0.25 mg SUBCUT ASDIRECTED PRN PRN Reason: Tacysystole Last Admin: 12/06/16 06:25 Dose: 0.25 mg - Infant Interaction Infant Disposition, : in Room with Family Interaction: Holding Feeding: Attempted ; Nursed Fair/Poor Support Person: Mother, Sister - Recovery Exam Fundal Tone: Firm Fundal Level: At Umbilicus Fundal Placement: Midline Lochia Amount: Scant Lochia Color: Rubra/Red Perineum Description: Intact, Minimal Bruising/Swelling Episiotomy/Laceration: None Bladder Status: Indwelling Catheter in Place Urinary Elimination: Indwelling Catheter - Exam General: alert, oriented HEENT: Pupils equal Neck: supple Lungs: Clear to auscultation, Normal respiratory effort Cardiovascular: Regular Rate, Regular Rhythm Abdomen: bowel sounds present, soft, no tenderness, no distension Extremities: no edema Skin: warm, dry, intact Wound/Incisions: healing well Neurological: no new focal deficit Psy/Mental Status: alert, normal affect, normal mood - Problem List Review Problem List Initiated/Reviewed/Updated: Yes - My Orders Last 24 Hours: My Active Orders 12/06/16 08:58 Patient Status [ADT] Routine Antiembolic Devices [RC] PER UNIT ROUTINE Communication Order [RC] PER UNIT ROUTINE Communication Order [RC] PER UNIT ROUTINE Communication Order [RC] Per Unit Routine May Shower [RC] ASDIRECTED RT Incentive Spirometry [RC] Q2HWA Acetaminophen/oxyCODONE [Percocet 325-5 MG] 1 tab PO Q4H PRN Acetaminophen/oxyCODONE [Percocet 325-5 MG] 2 tab PO Q4H PRN Bisacodyl [Dulcolax] 10 mg RECTAL .ONCE PRN Ibuprofen [Motrin] 800 mg PO Q8H PRN Lanolin [Lansinoh HPA] See Dose Instructions TOP ASDIRECTED PRN Ondansetron [Zofran] 4 mg IV Q4H PRN diphenhydrAMINE [Benadryl] 25 mg IVPUSH Q6H PRN Assess Lochia [WOMSER] Per Unit Routine Assess Uterine Involution [WOMSER] Per Unit Routine Breast Pump [WOMSER] Per Unit Routine Peripheral IV Discontinue [OM.PC] Routine Sequential Compression Device [OM.PC] Per Unit Routine 12/06/16 09:00 Docusate Sodium [Colace] 100 mg PO BID Ketorolac [Toradol] 30 mg IVPUSH Q6H Lactated Ringers [Ringers, Lactated] 1,000 ml IV ASDIRECTED - Plan Plan:: Term SROM confirmed. Plan admit possible induction.
[2016-12-07] MEDS: Acetaminophen/oxyCODONE 325-5 MG Tab PO PRN (16:19)
[2016-12-08] MEDS: Acetaminophen/oxyCODONE 325-5 MG Tab PO PRN ×2 (01:19→08:33)
[2016-12-08] MEDS: Docusate Sodium 100 MG Cap PO SCH (08:32)
--- NOTE | 2016-12-08 10:30 | PCM.DCSUM1 ---
Discharge Summary - Hospital Course Free Text/Narrative:: Discharge home with infant. Follow up in 10 days for incision check and 6 weeks for post visit. - Discharge Data Discharge Date: 12/08/16 Discharge Disposition: Home, Self-Care 01 Condition: Good - Patient Summary/Data Operative Procedure(s) Performed: Primary C/Section - Patient Instructions Diet: Usual Diet as Tolerated Activity: As Tolerated, Rest and Relax Today Driving: Do Not Drive (for a few days) Showering/Bathing: May Shower Wound/Incision Care: Keep Operative Site/Wound Site Clean and Dry Notify Provider of: Fever, Increased Pain, Swelling and Redness, Drainage, Nausea and/or Vomiting Other/Special Instructions: Discharge home with infant. Follow up in 10 days for incision check and 6 weeks for post visit. - Discharge Plan Home Medications: Home Meds . [No Known Home Meds] 08/22/15 [History] Referrals: [facility] [Outside] Radha Espinoza CNM [Mid-] - (1 week- December 15 @ 9:30am w/ Radha Espinoza 6 week- January 19 @ 1:30pm w/ Radha Espinoza ) - General Info Date of Service: 12/08/16 Functional Status: Reports: pain controlled, tolerating diet, ambulating, urinating - Review of Systems General: Reports: No Symptoms HEENT: Reports: no symptoms Pulmonary: Reports: no symptoms Cardiovascular: Reports: No Symptoms Gastrointestinal: Reports: No symptoms Genitourinary: Reports: no symptoms Musculoskeletal: Reports: no symptoms Skin: Reports: no symptoms Neurological: Reports: No Symptoms Psychiatric: Reports: no symptoms - Patient Data Vitals - Most Recent: Last Vital Signs Temp 36.2 C 12/08/16 08:18 Pulse 78 12/08/16 08:18 Resp 18 12/08/16 08:18 BP 136/91 H 12/08/16 08:18 Pulse Ox 100 12/08/16 08:18 Weight - Most Recent: 93.894 kg Med Orders - Current: Current Medications Bisacodyl (Dulcolax) 10 mg RECTAL .ONCE PRN PRN Reason: Constipation Diphenhydramine HCl (Benadryl) 25 mg IVPUSH Q6H PRN PRN Reason: Itching or Nausea Last Admin: 12/07/16 01:04 Dose: 25 mg Docusate Sodium (Colace) 100 mg PO BID [facility] Last Admin: 12/08/16 08:32 Dose: 100 mg Emollient Ointment (Lansinoh Hpa) 0 gm TOP ASDIRECTED PRN PRN Reason: Sore Nipples Lactated Ringer's (Ringers, Lactated) 1,000 mls @ 125 mls/hr IV ASDIRECTED [facility] Last Admin: 12/06/16 20:20 Dose: 125 mls/hr Ibuprofen (Motrin) 800 mg PO Q8H PRN PRN Reason: mild pain or fever Last Admin: 12/08/16 08:32 Dose: 800 mg Ondansetron HCl (Zofran) 4 mg IV Q4H PRN PRN Reason: Nausea/Vomiting Last Admin: 12/06/16 11:07 Dose: 4 mg Oxycodone/Acetaminophen (Percocet 325-5 Mg) 1 tab PO Q4H PRN PRN Reason: Pain (moderate 4-6) Oxycodone/Acetaminophen (Percocet 325-5 Mg) 2 tab PO Q4H PRN PRN Reason: Pain (moderate 4-6) Last Admin: 12/08/16 08:33 Dose: 2 tab Sodium Chloride (Saline Flush) 2.5 ml FLUSH ASDIRECTED PRN PRN Reason: Keep Vein Open Discontinued Medications Bupivacaine HCl (Sensorcaine-Mpf 0.5%) Confirm Administered Dose 20 ml .ROUTE .STK-MED ONE Stop: 12/06/16 08:06 Last Admin: 12/06/16 12:38 Dose: Not Given Butorphanol Tartrate (Stadol) 1 mg IVPUSH Q1H PRN PRN Reason: Pain Carboprost Tromethamine (Hemabate Ds) 250 mcg IM ASDIRECTED PRN PRN Reason: Post Hemorrhage Cefazolin Sodium (Ancef) Confirm Administered Dose 2 gm .ROUTE .STK-MED ONE Stop: 12/06/16 08:21 Citric Acid/Sodium Citrate (Bicitra Solution) Confirm Administered Dose 30 ml .ROUTE .STK-MED ONE Stop: 12/06/16 08:00 Last Admin: 12/06/16 12:38 Dose: Not Given Fentanyl (Sublimaze) Confirm Administered Dose 100 mcg .ROUTE .STK-MED ONE Stop: 12/06/16 04:18 Last Admin: 12/06/16 12:38 Dose: Not Given Fentanyl (Sublimaze) Confirm Administered Dose 100 mcg .ROUTE .[facility]-MED ONE Stop: 12/06/16 08:05 Last Admin: 12/06/16 12:38 Dose: Not Given Fentanyl (Sublimaze) Confirm Administered Dose 100 mcg .ROUTE .[facility]-MED ONE Stop: 12/06/16 08:40 Lactated Ringer's (Ringers, Lactated) 1,000 mls @ 150 mls/hr IV ASDIRECTED [facility] Last Admin: 12/06/16 07:43 Dose: 150 mls/hr Oxytocin/Lactated Ringer's (Pitocin In Lr 30 Units/500 Ml) 30 unit in 500 mls @ 999 mls/hr IV TITRATE [facility] PRN Reason: 999 MUNITS/MIN Stop: 12/05/16 18:16 Last Admin: 12/06/16 12:35 Dose: Not Given Oxytocin/Lactated Ringer's (Pitocin In Lr 30 Units/500 Ml) Confirm Administered Dose 30 unit in 500 mls @ as directed .ROUTE .[facility]-MED ONE Stop: 12/06/16 03:12 Last Admin: 12/06/16 12:35 Dose: Not Given Ropivacaine (Naropin 0.2%) Confirm Administered Dose 100 mls @ as directed .ROUTE .[facility]-MED ONE Stop: 12/06/16 04:18 Last Admin: 12/06/16 12:38 Dose: Not Given Ketorolac Tromethamine (Toradol) 30 mg IVPUSH Q6H [facility] Stop: 12/07/16 09:01 Last Admin: 12/07/16 10:51 Dose: 30 mg Lidocaine HCl (Xylocaine 1%) 50 ml INJECT .ONCE PRN PRN Reason: Laceration repair Methylergonovine Maleate (Methergine) 0.2 mg IM ASDIRECTED PRN PRN Reason: Post Hemorrhage Misoprostol (Cytotec) 200 mcg PO .ONCE PRN PRN Reason: Post Hemorrhage Misoprostol (Cytotec) 25 mcg VAG Q4H PRN PRN Reason: Cervical Ripening Stop: 12/06/16 21:39 Misoprostol (Cytotec) 25 mcg PO Q4H [facility] Last Admin: 12/06/16 12:36 Dose: Not Given Misoprostol (Cytotec) 25 mcg VAG Q4H PRN PRN Reason: Cervical Ripening Stop: 12/07/16 02:01 Last Admin: 12/05/16 22:06 Dose: 25 mcg Misoprostol (Cytotec) 25 mcg PO Q4H [facility] Last Admin: 12/06/16 12:37 Dose: Not Given Morphine Sulfate (Duramorph Pf) Confirm Administered Dose 10 mg .ROUTE .STK-MED ONE Stop: 12/06/16 08:48 Nalbuphine HCl (Nubain) 10 mg IVPUSH Q1H PRN PRN Reason: Pain (severe 7-10) Stop: 12/05/16 19:39 Nalbuphine HCl (Nubain) 2.5 mg IVPUSH Q3H PRN PRN Reason: Pruritis Stop: 12/07/16 09:25 Last Admin: 12/06/16 12:26 Dose: 2.5 mg Naloxone HCl (Narcan) 0.1 mg IVPUSH ONETIME PRN PRN Reason: RR<6 WITH STIMULATION Stop: 12/07/16 09:25 Octyl Cyanoacrylate (Dermabond Advance) Confirm Administered Dose 1 applic .ROUTE .STK-MED ONE Stop: 12/06/16 08:57 Oxycodone/Acetaminophen (Percocet 325-5 Mg) 1 tab PO .Q4HRS PRN PRN Reason: Breakthrough Pain Stop: 12/07/16 09:23 Last Admin: 12/07/16 08:04 Dose: 1 tab Oxytocin (Pitocin) Confirm Administered Dose 10 unit .ROUTE .STK-MED ONE Stop: 12/06/16 08:40 Oxytocin (Pitocin) Confirm Administered Dose 20 unit .ROUTE .STK-MED ONE Stop: 12/06/16 08:52 Sodium Chloride (Saline Flush) 10 ml FLUSH ASDIRECTED PRN PRN Reason: Keep Vein Open Sterile Water (Sterile Water For Irrigation) 1,000 ml IRR ASDIRECTED PRN PRN Reason: delivery Terbutaline Sulfate (Brethine) 0.25 mg SUBCUT ASDIRECTED PRN PRN Reason: Tacysystole Last Admin: 12/06/16 06:25 Dose: 0.25 mg - Exam General: Reports: alert, oriented, cooperative, no acute distress Lungs: Reports: Clear to auscultation, Normal respiratory effort Cardiovascular: Reports: Regular Rate, Regular Rhythm, No Murmurs Abdomen: Reports: bowel sounds present, soft, no tenderness, no distension (Female) Exam: Vaginal Bleeding Rectal (Female) Exam: Deferred Back Exam: Reports: Full Range of Motion Extremities: Reports: normal pulses, no clubbing Skin: Reports: warm, dry, intact Wound/Incisions: Reports: healing well, no drainage Neurological: Reports: no new focal deficit, normal gait, normal speech, normal tone Psy/Mental Status: Reports: alert, normal affect, normal mood *Q Meaningful Use (DIS) - VTE *Q VTE Criteria *Q: - Stroke *Q Stroke Criteria *Q: - AMI *Q AMI Criteria *Q:
[2016-12-08 15:00] VITALS: BP 139/91
== END 2016-12-08 13:15 | disposition home or self-care (01) | DRG 766 ==
LOC: MW.OBCHECK 16:13 → MW.OB 16:17 → MW.OBCHECK 16:41 → MW.OB 16:41 → EDBD 16:41 → OBSVTOIN 12-06 08:36 → MW.OB 12-06 17:50
PROVIDERS: ADMIT Obstetrics & Gynecology; ATTEND Obstetrics & Gynecology
PROC: 10D00Z1 Extraction of Products of Conception, Low, Open Approach (ICD-10-PCS; principal; 2016-12-06)
PROC: 3E0P7GC Introduction of Other Therapeutic Substance into Female Reproductive, Via Natural or Artificial Opening (ICD-10-PCS; 2016-12-06)
DX: O76 Abnormality in fetal heart rate and rhythm complicating labor and delivery (principal); Z3A.40 40 weeks gestation of pregnancy; Z37.0 Single live birth
CPT/HCPCS: 01967; 01968; 36415; 59025; 84112; 85014; 85018; 85027; 86850; 86900; 86901; A9270-GY; J0690; J1200; J1885; J2270; J2300; J2405; J2590; J3010; J3105; J7120

== ENCOUNTER 2017-06-25 02:01 | Emergency (ER) | payer BC, MEDICAID, OTHER ==
[2017-06-25] MEDS ORDERED: Ketorolac 30 MG/ML SDV IVPUSH ONE (02:08)
[2017-06-25] MEDS ORDERED: Sodium Chloride 0.9% 1,000 ML IV ONE ×2 (02:08→02:10)
[2017-06-25] MEDS ORDERED: Sodium Chloride 0.9% 10 ML Syringe FLUSH PRN (02:08)
[2017-06-25] MEDS ORDERED: Sodium Chloride 0.9% 2.5 ML Syringe FLUSH PRN (02:08)
[2017-06-25] MEDS ORDERED: Ondansetron 4 MG/2 ML SDV IVPUSH ONE (02:10)
[2017-06-25 02:23] VITALS: BP 131/57
[2017-06-25 02:46] LABS: CHLORIDE,CL 108 mmol/L (98-110); SODIUM,NA 138 mmol/L (136-146)
--- NOTE | 2017-06-25 03:11 | EDM.PDOC ---
ED HPI GENERAL MEDICAL PROBLEM - General Chief Complaint: Chest Pain Stated Complaint: SHORTNESS OF BREATH, CHEST PAIN Time Seen by Provider: 06/25/17 03:10 - History of Present Illness INITIAL COMMENTS - FREE TEXT/NARRATIVE: HISTORY AND PHYSICAL: History of present illness: Patient 21-year-old female presents with concern of chest pain is vaguely described with no associated palpitations diaphoresis shortness of breath nausea vomiting or other complaints she denies trauma she's not on oral contraceptives denies history of DVT or PE Review of systems: As per history of present illness and below otherwise all systems reviewed and negative. Past medical history: As per history of present illness and as reviewed below otherwise noncontributory. Surgical history: As per history of present illness and as reviewed below otherwise noncontributory. Social history: No reported history of drug or alcohol abuse. Family history: As per history of present illness and as reviewed below otherwise noncontributory. Physical exam: HEENT: Atraumatic, normocephalic, pupils reactive, negative for conjunctival pallor or scleral icterus, mucous membranes moist, throat clear, neck supple, nontender, trachea midline. Lungs: Clear to auscultation, breath sounds equal bilaterally, chest nontender. Heart: S1S2, regular, negative for clicks, rubs, or JVD. Abdomen: Soft, nondistended, nontender. Negative for masses or hepatosplenomegaly. Negative for costovertebral tenderness. Pelvis: Stable nontender. Genitourinary: Deferred. Rectal: Deferred. Extremities: Atraumatic, negative for cords or calf pain. Neurovascular unremarkable. Neuro: Awake, alert, oriented. Cranial nerves II through XII unremarkable. Cerebellum unremarkable. Motor and sensory unremarkable throughout. Exam nonfocal. Diagnostics: CBC CMP and troponin PT/INR d-dimer chest x-ray EKG Therapeutics: IV O2 monitor Impression: #1 atypical chest pain Definitive disposition and diagnosis as appropriate pending reevaluation and review of above. chest Pain Score (Numeric/FACES): 8 - Related Data Allergies Allergy/AdvReac Type Severity Reaction Status Date / Time No Known Allergies Allergy Verified 06/25/17 02:23 Home Meds: Home Meds . 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 Below) Other OB/BYN History: Hx of Chlamydia during this Musculoskeletal History: Reports: None Neurological History: Reports: None Psychiatric History: Reports: None Endocrine/Metabolic History: Reports: Obesity/BMI 30+ Hematologic History: Reports: None Immunologic History: Reports: None Oncologic (Cancer) History: Reports: None Dermatologic History: Reports: None - Infectious Disease History Infectious Disease History: Reports: None - Past Surgical History HEENT Surgical History: Reports: None Respiratory Surgical History: Reports: None Female Surgical History: Reports: None, Section Social & Family History - Family History Family Medical History: Noncontributory Dermatologic: Reports: None - Tobacco Use Smoking Status *Q: Never Smoker Second Hand Smoke Exposure: No - Caffeine Use Caffeine Use: Reports: Coffee - Recreational Drug Use Recreational Drug Use: No ED ROS GENERAL - Review of Systems Review Of Systems: ROS reveals no pertinent complaints other than HPI. ED EXAM, GENERAL - Physical Exam Exam: See Below (See dictation) Course - Vital Signs Last Recorded V/S: Last Vital Signs Temp 36.6 C 06/25/17 02:01 Pulse 71 06/25/17 02:01 Resp 16 06/25/17 02:01 BP 131/57 L 06/25/17 02:01 Pulse Ox 100 06/25/17 02:01 - Orders/Labs/Meds Orders: Active Orders 24 hr Category Date Time Status EKG Documentation Completion [RC] STAT Care 06/25/17 02:08 Active Chest 1V Frontal [CR] Stat Exams 06/25/17 02:08 Ordered INFLUENZA A+B AG SCREEN [RM] Stat Lab 06/25/17 02:28 Received UA W/MICROSCOPIC [URIN] Stat Lab 06/25/17 02:40 Received Sodium Chloride 0.9% [Normal Saline] 1,000 ml Med 06/25/17 02:10 Active IV STAT Sodium Chloride 0.9% [Saline Flush] Med 06/25/17 02:08 Active 10 ml FLUSH ASDIRECTED PRN Sodium Chloride 0.9% [Saline Flush] Med 06/25/17 02:08 Active 2.5 ml FLUSH ASDIRECTED PRN Saline Lock Insert [OM.PC] Stat Oth 06/25/17 02:08 Ordered Medication Orders Sodium Chloride (Normal Saline) 1,000 mls @ 999 mls/hr IV STAT ONE Stop: 06/25/17 03:10 Last Admin: 06/25/17 02:18 Dose: 999 mls/hr Sodium Chloride (Saline Flush) 10 ml FLUSH ASDIRECTED PRN PRN Reason: Keep Vein Open Last Admin: 06/25/17 02:18 Dose: 10 ml Sodium Chloride (Saline Flush) 2.5 ml FLUSH ASDIRECTED PRN PRN Reason: Keep Vein Open Last Admin: 06/25/17 02:18 Dose: 2.5 ml Labs: Laboratory Tests 06/25/17 06/25/17 06/25/17 Range/Units 02:10 02:10 02:10 WBC 12.31 H (4.0-11.0) K/uL RBC 4.67 (4.30-5.90) M/uL Hgb 13.0 (12.0-16.0) g/dL Hct 39.2 (36.0-46.0) % MCV 83.9 (80.0-98.0) fL MCH 27.8 (27.0-32.0) pg MCHC 33.2 (31.0-37.0) g/dL RDW Std Deviation 42.5 (28.0-62.0) fl RDW Coeff of Arelis 14 (11.0-15.0) % Plt Count 251 (150-400) K/uL MPV 10.70 (7.40-12.00) fL Add Manual Diff YES Neutrophils % (Manual) 72 (48.0-80.0) % Band Neutrophils % 4 % Lymphocytes % (Manual) 23 (16.0-40.0) % Monocytes % (Manual) 1 (0.0-15.0) % Nucleated RBC % 0.0 /100WBC Absolute Seg Neuts 8.9 H (1.4-5.7) Band Neutrophils # 0.5 Lymphocytes # (Manual) 2.8 H (0.6-2.4) Monocytes # (Manual) 0.1 (0.0-0.8) Nucleated RBCs # 0 K/uL INR 1.21 H (0.86-1.11) D-Dimer, Quantitative 0.19 (0.0-0.52) mg/LFEU Sodium 138 (136-146) mmol/L Potassium 3.4 L (3.5-5.1) mmol/L Chloride 108 (98-110) mmol/L Carbon Dioxide 23 (21-31) mmol/L BUN 9 (6.0-23.0) mg/dL Creatinine 0.8 (0.6-1.5) mg/dL Est Cr Clr Drug Dosing 99.25 mL/min Estimated GFR (MDRD) > 60.0 ml/min Glucose 150 H (60-110) mg/dL Calcium 8.7 L (8.8-10.8) mg/dL Total Bilirubin 0.6 (0.1-1.5) mg/dL AST 18 (5-40) IU/L ALT 10 (8-54) IU/L Alkaline Phosphatase 61 (40-150) Troponin I < 0.10 (0.0-0.29) NG/ML Total Protein 6.4 (6.0-8.0) g/dL Albumin 3.7 (3.5-5.0) g/dL Globulin 2.7 (2.0-3.5) g/dL Albumin/Globulin Ratio 1.4 (1.3-2.8) Urine HCG, Qual (NEGATIVE) 06/25/17 Range/Units 02:40 WBC (4.0-11.0) K/uL RBC (4.30-5.90) M/uL Hgb (12.0-16.0) g/dL Hct (36.0-46.0) % MCV (80.0-98.0) fL MCH (27.0-32.0) pg MCHC (31.0-37.0) g/dL RDW Std Deviation (28.0-62.0) fl RDW Coeff of Arelis (11.0-15.0) % Plt Count (150-400) K/uL MPV (7.40-12.00) fL Add Manual Diff Neutrophils % (Manual) (48.0-80.0) % Band Neutrophils % % Lymphocytes % (Manual) (16.0-40.0) % Monocytes % (Manual) (0.0-15.0) % Nucleated RBC % /100WBC Absolute Seg Neuts (1.4-5.7) Band Neutrophils # Lymphocytes # (Manual) (0.6-2.4) Monocytes # (Manual) (0.0-0.8) Nucleated RBCs # K/uL INR (0.86-1.11) D-Dimer, Quantitative (0.0-0.52) mg/LFEU Sodium (136-146) mmol/L Potassium (3.5-5.1) mmol/L Chloride (98-110) mmol/L Carbon Dioxide (21-31) mmol/L BUN (6.0-23.0) mg/dL Creatinine (0.6-1.5) mg/dL Est Cr Clr Drug Dosing mL/min Estimated GFR (MDRD) ml/min Glucose (60-110) mg/dL Calcium (8.8-10.8) mg/dL Total Bilirubin (0.1-1.5) mg/dL AST (5-40) IU/L ALT (8-54) IU/L Alkaline Phosphatase (40-150) Troponin I (0.0-0.29) NG/ML Total Protein (6.0-8.0) g/dL Albumin (3.5-5.0) g/dL Globulin (2.0-3.5) g/dL Albumin/Globulin Ratio (1.3-2.8) Urine HCG, Qual NEGATIVE (NEGATIVE) Meds: Medications Generic Name Dose Route Start Last Admin Trade Name Freq PRN Reason Stop Dose Admin Sodium Chloride 1,000 mls @ 999 mls/hr 06/25/17 02:10 06/25/17 02:18 Normal Saline IV 06/25/17 03:10 999 mls/hr STAT ONE Administration Sodium Chloride 10 ml 06/25/17 02:08 06/25/17 02:18 Saline Flush FLUSH 10 ml ASDIRECTED PRN Administration Keep Vein Open Sodium Chloride 2.5 ml 06/25/17 02:08 06/25/17 02:18 Saline Flush FLUSH 2.5 ml ASDIRECTED PRN Administration Keep Vein Open Discontinued Medications Generic Name Dose Route Start Last Admin Trade Name Freq PRN Reason Stop Dose Admin Sodium Chloride 1,000 mls @ 999 mls/hr 06/25/17 02:08 06/25/17 02:23 Normal Saline IV 06/25/17 03:08 Not Given .Bolus ONE Ketorolac Tromethamine 30 mg 06/25/17 02:08 06/25/17 02:18 Toradol IVPUSH 06/25/17 02:09 30 mg ONETIME ONE Administration Ondansetron HCl 4 mg 06/25/17 02:10 06/25/17 02:18 Zofran IVPUSH 06/25/17 02:11 4 mg ONETIME ONE Administration Departure - Departure Time of Disposition: 03:10 Disposition: Home, Self-Care 01 Condition: Good Clinical Impression: Atypical chest pain - Discharge Information Additional Instructions: The following information is given to patients seen in the emergency department who are being discharged to home. This information is to outline your options for follow-up care. We provide all patients seen in our emergency department with a follow-up referral. The need for follow-up, as well as the timing and circumstances, are variable depending upon the specifics of your emergency department visit. If you don't have a primary care physician on staff, we will provide you with a referral. We always advise you to contact your personal physician following an emergency department visit to inform them of the circumstance of the visit and for follow-up with them and/or the need for any referrals to a consulting specialist. The emergency department will also refer you to a specialist when appropriate. This referral assures that you have the opportunity for followup care with a specialist. All of these measure are taken in an effort to provide you with optimal care, which includes your followup. Under all circumstances we always encourage you to contact your private physician who remains a resource for coordinating your care. When calling for followup care, please make the office aware that this follow-up is from your recent emergency room visit. If for any reason you are refused follow-up, please contact the [facility] emergency department at and asked to speak to the emergency department charge nurse. Motrin/Tylenol as directed follow-up primary medical doctor wanted today's return as needed as discussed - My Orders Last 24 Hours: My Active Orders 06/25/17 02:08 EKG Documentation Completion [RC] STAT Chest 1V Frontal [CR] Stat Sodium Chloride 0.9% [Saline Flush] 10 ml FLUSH ASDIRECTED PRN Sodium Chloride 0.9% [Saline Flush] 2.5 ml FLUSH ASDIRECTED PRN Saline Lock Insert [OM.PC] Stat 06/25/17 02:10 Sodium Chloride 0.9% [Normal Saline] 1,000 ml IV STAT 06/25/17 02:28 INFLUENZA A+B AG SCREEN [RM] Stat 06/25/17 02:40 UA W/MICROSCOPIC [URIN] Stat - Assessment/Plan Last 24 Hours: My Active Orders 06/25/17 02:08 EKG Documentation Completion [RC] STAT Chest 1V Frontal [CR] Stat Sodium Chloride 0.9% [Saline Flush] 10 ml FLUSH ASDIRECTED PRN Sodium Chloride 0.9% [Saline Flush] 2.5 ml FLUSH ASDIRECTED PRN Saline Lock Insert [OM.PC] Stat 06/25/17 02:10 Sodium Chloride 0.9% [Normal Saline] 1,000 ml IV STAT 06/25/17 02:28 INFLUENZA A+B AG SCREEN [RM] Stat 06/25/17 02:40 UA W/MICROSCOPIC [URIN] Stat
--- NOTE | 2017-06-25 09:59 | CR ---
EXAM DATE: 06/25/17 PATIENT'S AGE: 21 Patient: AILYN RETANA Facility: [place], [place] Site . Site : 1995 Study: XRay Chest [id number] 3:25:11 AM Ordering Physician: Malissa Muhammad Final Report: Indication: Chest pain Technique: Chest 1 view Comparison: None Findings/Impression: Cardiovascular and mediastinum: Heart size and vasculature are normal in caliber and appearance. Mediastinum is within normal limits. Lungs and pleural space: Lungs are clear. No sign of infiltrate or mass. No sign of pleural effusion. No pneumothorax. Bones and soft tissues: No significant findings. Dictated by oMira Lao MD @ Jun 25 2017 3:52AM (Electronic Signature) Report Signed by Proxy. NAOMY
== END 2017-06-25 04:10 | disposition home or self-care (01) ==
LOC: MW.ED 02:01
DX: R07.89 Other chest pain (principal)
CPT/HCPCS: 71010; 80053; 81001; 81025; 84484; 85025; 85379; 85610; 87804; 93005; 96361; 96374; 96375; 99285; J1885; J2405; J7040; 99283

== ENCOUNTER 2018-01-05 13:22 | Emergency (ER) | payer MEDICAID ==
--- NOTE | 2018-01-05 13:52 | EDM.PDOC ---
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 She states she works at [employer], two days ago a resident fell and hit her in the abdomen. Since then she is having pelvic cramping and vaginal bleeding. She states she was passing dime sized clots at first but this has since resolved. She reports having chills. ] Review of systems: As per history of present illness and below otherwise all systems reviewed and negative. Past medical history: As per history of present illness and as reviewed below otherwise noncontributory. Surgical history: As per history of present illness and as reviewed below otherwise noncontributory. Social history: No reported history of drug or alcohol abuse. Family history: As per history of present illness and as reviewed below otherwise noncontributory. Physical exam: HEENT: Atraumatic, normocephalic, pupils reactive, negative for conjunctival pallor or scleral icterus. Lungs: Clear to auscultation, breath sounds equal bilaterally, chest nontender. Heart: S1S2, regular, negative for clicks, rubs, or JVD. Abdomen: Mild suprabupic tenderness. Soft, nondistended. Negative for masses or hepatosplenomegaly. Negative for costovertebral tenderness. Pelvis: Stable nontender. Genitourinary: OS is closed on bimanual exam. Rectal: Deferred. Extremities: Atraumatic, negative for cords or calf pain. Neurovascular unremarkable. Neuro: Awake, alert, oriented. Cranial nerves II through XII unremarkable. Cerebellum unremarkable. Motor and sensory unremarkable throughout. Exam nonfocal. Notes: Diagnostics: [CBC, ABO/Rh type, hCG quantitative Transvaginal US ] Therapeutics: [] Impression: [Vaginal bleeding in ] Plan: [#1 Follow up with your OB #2 Return to ED as needed as discussed] Definitive disposition and diagnosis as appropriate pending reevaluation and review of above. abdominal pain Pain Score (Numeric/FACES): 0 - Related Data Allergies Allergy/AdvReac Type Severity Reaction Status Date / Time No Known Allergies Allergy Verified 01/05/18 13:42 Home Meds: Home Meds . 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 during this Musculoskeletal History: Reports: None Neurological History: Reports: None Psychiatric History: Reports: None Endocrine/Metabolic History: Reports: Obesity/BMI 30+ Hematologic History: Reports: None Immunologic History: Reports: None Oncologic (Cancer) History: Reports: None Dermatologic History: Reports: None - Infectious Disease History Infectious Disease History: Reports: None - Past Surgical History HEENT Surgical History: Reports: None Respiratory Surgical History: Reports: None Female Surgical History: Reports: None, Section Social & Family History - Family History Family Medical History: Noncontributory Dermatologic: Reports: None - Caffeine Use Caffeine Use: Reports: Coffee ED ROS GENERAL - Review of Systems Review Of Systems: ROS reveals no pertinent complaints other than HPI. ED EXAM, RENAL/ - Physical Exam Exam: See Below (see dictation) Course - Vital Signs Last Recorded V/S: Last Vital Signs Temp 37.4 C 01/05/18 15:40 Pulse 64 01/05/18 15:40 Resp 16 01/05/18 15:40 BP 133/72 01/05/18 15:40 Pulse Ox 98 01/05/18 15:40 - Orders/Labs/Meds Orders: Active Orders 24 hr Category Date Time Status UA W/MICROSCOPIC [URIN] Stat Lab 01/05/18 15:09 Ordered Labs: Laboratory Tests 01/05/18 01/05/18 01/05/18 Range/Units 14:05 14:05 14:05 WBC 7.82 (4.0-11.0) K/uL RBC 4.20 L (4.30-5.90) M/uL Hgb 11.6 L (12.0-16.0) g/dL Hct 34.3 L (36.0-46.0) % MCV 81.7 (80.0-98.0) fL MCH 27.6 (27.0-32.0) pg MCHC 33.8 (31.0-37.0) g/dL RDW Std Deviation 42.6 (28.0-62.0) fl RDW Coeff of Arelis 14 (11.0-15.0) % Plt Count 258 (150-400) K/uL MPV 9.60 (7.40-12.00) fL Neut % (Auto) 62.7 (48.0-80.0) % Lymph % (Auto) 30.9 (16.0-40.0) % [place] % (Auto) 5.9 (0.0-15.0) % Eos % (Auto) 0.4 (0.0-7.0) % Baso % (Auto) 0.1 (0.0-1.5) % Neut # (Auto) 4.9 (1.4-5.7) K/uL Lymph # (Auto) 2.4 (0.6-2.4) K/uL [place] # (Auto) 0.5 (0.0-0.8) K/uL Eos # (Auto) 0.0 (0.0-0.7) K/uL Baso # (Auto) 0.0 (0.0-0.1) K/uL Nucleated RBC % 0.0 /100WBC Nucleated RBCs # 0 K/uL HCG, Quant 659349.0 mIU/mL Urine Color Urine Appearance Urine pH (5.0-8.0) Ur Specific [place] (1.001-1.035) Urine Protein (NEGATIVE) mg/dL Urine Glucose (UA) (NEGATIVE) mg/dL Urine Ketones (NEGATIVE) mg/dL Urine Occult Blood (NEGATIVE) Urine Nitrite (NEGATIVE) Urine Bilirubin (NEGATIVE) Urine Urobilinogen (<2.0) EU/dL Ur Leukocyte Esterase (NEGATIVE) Urine RBC (0-2/HPF) Urine WBC (0-5/HPF) Ur Epithelial Cells (NONE-FEW) Urine Bacteria (NEGATIVE) Blood Type O POSITIVE 01/05/18 Range/Units 15:09 WBC (4.0-11.0) K/uL RBC (4.30-5.90) M/uL Hgb (12.0-16.0) g/dL Hct (36.0-46.0) % MCV (80.0-98.0) fL MCH (27.0-32.0) pg MCHC (31.0-37.0) g/dL RDW Std Deviation (28.0-62.0) fl RDW Coeff of Arelis (11.0-15.0) % Plt Count (150-400) K/uL MPV (7.40-12.00) fL Neut % (Auto) (48.0-80.0) % Lymph % (Auto) (16.0-40.0) % [place] % (Auto) (0.0-15.0) % Eos % (Auto) (0.0-7.0) % Baso % (Auto) (0.0-1.5) % Neut # (Auto) (1.4-5.7) K/uL Lymph # (Auto) (0.6-2.4) K/uL [place] # (Auto) (0.0-0.8) K/uL Eos # (Auto) (0.0-0.7) K/uL Baso # (Auto) (0.0-0.1) K/uL Nucleated RBC % /100WBC Nucleated RBCs # K/uL HCG, Quant mIU/mL Urine Color YELLOW Urine Appearance CLEAR Urine pH 6.5 (5.0-8.0) Ur Specific [place] 1.015 (1.001-1.035) Urine Protein NEGATIVE (NEGATIVE) mg/dL Urine Glucose (UA) NEGATIVE (NEGATIVE) mg/dL Urine Ketones NEGATIVE (NEGATIVE) mg/dL Urine Occult Blood NEGATIVE (NEGATIVE) Urine Nitrite NEGATIVE (NEGATIVE) Urine Bilirubin NEGATIVE (NEGATIVE) Urine Urobilinogen 0.2 (<2.0) EU/dL Ur Leukocyte Esterase NEGATIVE (NEGATIVE) Urine RBC 0-2 (0-2/HPF) Urine WBC 0-1 (0-5/HPF) Ur Epithelial Cells MANY (NONE-FEW) Urine Bacteria RARE (NEGATIVE) Blood Type Departure - Departure Time of Disposition: 16:14 Disposition: Home, Self-Care 01 Condition: Good Clinical Impression: Vaginal bleeding - Discharge Information Referrals: PCP,None [Primary Care Provider] - Forms: ED Department Discharge Additional Instructions: The following information is given to patients seen in the emergency department who are being discharged to home. This information is to outline your options for follow-up care. We provide all patients seen in our emergency department with a follow-up referral. The need for follow-up, as well as the timing and circumstances, are variable depending upon the specifics of your emergency department visit. If you don't have a primary care physician on staff, we will provide you with a referral. We always advise you to contact your personal physician following an emergency department visit to inform them of the circumstance of the visit and for follow-up with them and/or the need for any referrals to a consulting specialist. The emergency department will also refer you to a specialist when appropriate. This referral assures that you have the opportunity for follow-up care with a specialist. All of these measure are taken in an effort to provide you with optimal care, which includes your follow-up. Under all circumstances we always encourage you to contact your private physician who remains a resource for coordinating your care. When calling for follow-up care, please make the office aware that this follow-up is from your recent emergency room visit. If for any reason you are refused follow-up, please contact the [facility] Emergency Department at and asked to speak to the emergency department charge nurse. [facility] [address] [place] [address] #1 Follow up with your OB #2 Return to ED as needed as discussed - My Orders Last 24 Hours: My Active Orders 01/05/18 15:09 UA W/MICROSCOPIC [URIN] Stat - Assessment/Plan Last 24 Hours: My Active Orders 01/05/18 15:09 UA W/MICROSCOPIC [URIN] Stat
[2018-01-05 15:41] VITALS: BP 133/72
--- NOTE | 2018-01-05 15:42 | US ---
EXAMINATION: Transvaginal obstetric ultrasound HISTORY: Bleeding COMPARISON: None TECHNIQUE: Grayscale, spectral Doppler, color Doppler, and M-mode imaging obtained. FINDINGS: There is an intrauterine noted with a small subchorionic hypoechoic crescent note d. There is a yolk sac and pole. Matador-rump length measures 1.8 cm. Mean sac diameter is 3.3 cm . This gives an estimated gestational age at 8 weeks and 4 days with an estimated date of delivery at 08/13/2018. heart rate is 170 bpm. Both left the right ovary appears grossly unremarkable likely containing a small involuting cyst. Lef t ovary not well characterized. IMPRESSION: 1. Single live intrauterine . 2. Small subchorionic hemorrhage noted.
== END 2018-01-05 16:48 | disposition home or self-care (01) ==
LOC: MW.ED 13:22
DX: O20.9 Hemorrhage in early pregnancy, unspecified (principal); Z3A.10 10 weeks gestation of pregnancy
CPT/HCPCS: 36415; 76817; 76817-26; 81001; 84702; 85025; 86900; 86901; 99284-25

== ENCOUNTER 2019-09-17 21:53 | Emergency (ER) | payer SELFPAY ==
--- NOTE | 2019-09-17 22:13 | EDM.PDOC ---
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 Also has a history of UTI on medication patient has back pain negative fever. Has no bleeding or discharge states she has questionable discharge Onset: Today, Gradual Duration: Hour(s): Location: Reports: Abdomen Quality: Reports: Dull Severity: Mild Improves with: Reports: None Worsens with: Reports: None Associated Symptoms: Reports: No Other Symptoms, Other (States she has flank pain, left-sided) pelvic Pain Score (Numeric/FACES): 5 - Related Data Allergies Allergy/AdvReac Type Severity Reaction Status Date / Time No Known Allergies Allergy Verified 09/17/19 22:00 Home Meds: Home Meds Non-Formulary Medication [NF Drug] 1 each PO BID 09/17/19 [History] Past Medical History - Past Health History Medical/Surgical History: Denies Medical/Surgical History HEENT History: Reports: None Cardiovascular History: Reports: None Respiratory History: Reports: Asthma Gastrointestinal History: Reports: None Genitourinary History: Reports: None 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: , 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: Hx of Chlamydia during this Musculoskeletal History: Reports: None Neurological History: Reports: None Psychiatric History: Reports: None Endocrine/Metabolic History: Reports: Obesity/BMI 30+ Hematologic History: Reports: None Immunologic History: Reports: None Oncologic (Cancer) History: Reports: None Dermatologic History: Reports: None - Infectious Disease History Infectious Disease History: Reports: None - Past Surgical History HEENT Surgical History: Reports: None Respiratory Surgical History: Reports: None Female Surgical History: Reports: Section Social & Family History - Family History Family Medical History: Noncontributory Dermatologic: Reports: None - Tobacco Use Smoking Status *Q: Never Smoker - Caffeine Use Caffeine Use: Reports: Soda - Recreational Drug Use Recreational Drug Use: No ED ROS GENERAL - Review of Systems Review Of Systems: See Below Constitutional: Reports: No Symptoms HEENT: Reports: No Symptoms Respiratory: Reports: No Symptoms. Denies: Shortness of Breath, Wheezing Cardiovascular: Reports: No Symptoms Endocrine: Reports: No Symptoms GI/Abdominal: Reports: No Symptoms : Reports: No Symptoms, Flank Pain Musculoskeletal: Reports: No Symptoms, Back Pain Skin: Reports: No Symptoms Neurological: Reports: No Symptoms Psychiatric: Reports: No Symptoms Hematologic/Lymphatic: Reports: No Symptoms Immunologic: Reports: No Symptoms ED EXAM - Physical Exam Exam: See Below Exam Limited By: No Limitations General Appearance: Alert, WD/WN, No Apparent Distress, Mild Distress Eye Exam: Bilateral Eye: Normal Fundi, Normal Inspection, PERRL Ears: Normal External Exam, Normal Canal, Hearing Grossly Normal, Normal TMs Nose: Normal Inspection, Normal Mucosa Throat/Mouth: Normal Inspection Head: Atraumatic, Normocephalic Neck: Normal Inspection, Supple Respiratory/Chest: No Respiratory Distress, Lungs Clear, No Accessory Muscle Use Cardiovascular: Normal Peripheral Pulses GI/Abdominal Exam: Normal Bowel Sounds, Soft, Non-Tender, No Organomegaly, No Abnormal Bruit. No: Guarding, Rigid Rectal Exam: Deferred (Female) Exam: Deferred for Placenta Previa, Other (Deffered for possible placenta previa) Heart Tones: Present Movement: Active Back Exam: Normal Inspection, Full Range of Motion Extremities: Normal Inspection, Normal Range of Motion, No Pedal Edema, Normal Capillary Refill Neurological: Alert, Oriented, CN II-XII Intact Psychiatric: Normal Affect, Normal Mood Skin Exam: Warm, Dry Course - Vital Signs Text/Narrative:: This 23-year-old female presents the emergency room approximately 18 weeks with pressure in her lower abdominal area. Patient is status post UTI. Patient also states she has some back pain. Patient exam is benign. Patient having no abdominal symptoms. Pelvic ultrasound was performed which shows an 18-week viable fetus with good heart rate. Patient's UA is negative. Patient will be discharged to follow-up with her primary care physician. Assessment : pressure secondary to 18-week uterus. Last Recorded V/S: Last Vital Signs Temp 97.2 F 09/17/19 22:01 Pulse 77 09/18/19 00:33 Resp 14 09/18/19 00:33 BP 105/52 L 09/18/19 00:33 Pulse Ox 100 09/18/19 00:33 - Orders/Labs/Meds Orders: Active Orders 24 hr Category Date Time Status CV Abdominal Aortic Ultrasound [US] Stat Exams 09/17/19 22:15 Stop Req Labs: Laboratory Tests 09/17/19 09/17/19 Range/Units 22:28 23:30 WBC 9.59 (4.0-11.0) K/uL RBC 4.30 (4.30-5.90) M/uL Hgb 12.3 (12.0-16.0) g/dL Hct 36.9 (36.0-46.0) % MCV 85.8 (80.0-98.0) fL MCH 28.6 (27.0-32.0) pg MCHC 33.3 (31.0-37.0) g/dL RDW Std Deviation 43.6 (28.0-62.0) fl RDW Coeff of Arelis 14 (11.0-15.0) % Plt Count 195 (150-400) K/uL MPV 9.90 (7.40-12.00) fL Nucleated RBC % 0.0 /100WBC Nucleated RBCs # 0 K/uL Urine Color YELLOW Urine Appearance SLT CLOUDY Urine pH 6.5 (5.0-8.0) Ur Specific [place] 1.010 (1.001-1.035) Urine Protein NEGATIVE (NEGATIVE) mg/dL Urine Glucose (UA) NEGATIVE (NEGATIVE) mg/dL Urine Ketones TRACE H (NEGATIVE) mg/dL Urine Occult Blood SMALL H (NEGATIVE) Urine Nitrite NEGATIVE (NEGATIVE) Urine Bilirubin NEGATIVE (NEGATIVE) Urine Urobilinogen 0.2 (<2.0) EU/dL Ur Leukocyte Esterase NEGATIVE (NEGATIVE) Urine RBC 1-3 (0-2/HPF) Urine WBC 0-2 (0-5/HPF) Ur Epithelial Cells FEW (NONE-FEW) Urine Bacteria RARE (NEGATIVE) Departure - Departure Time of Disposition: 01:00 Disposition: Home, Self-Care 01 Condition: Good Clinical Impression: Pain in pelvis - Discharge Information Instructions: Pelvic Pain, Female, [id number] Referrals: Radha Espinoza CNM [Primary Care Provider] - Forms: ED Department Discharge Additional Instructions: Patient is to follow-up with her primary care physician 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 Return for any problems i.e. vaginal bleeding/vaginal pain/discharge Sepsis Event Note - Evaluation Sepsis Screening Result: No Definite Risk - Focused Exam Vital Signs: Vital Signs Temp Pulse Resp BP Pulse Ox 03/15/20 00:33 77 14 105/52 L 100 09/17/19 22:01 97.2 F 76 17 118/72 100 Date Exam was Performed: 09/18/19 Time Exam was Performed: 00:55 - My Orders Last 24 Hours: My Active Orders 09/17/19 22:15 CV Abdominal Aortic Ultrasound [US] Stat - Assessment/Plan Last 24 Hours: My Active Orders 09/17/19 22:15 CV Abdominal Aortic Ultrasound [US] Stat
--- NOTE | 2019-09-18 00:43 | US ---
HISTORY: Pressure. Mucous discharge. COMPARISON: None. TECHNIQUE: obstetric ultrasound. FINDINGS: Cervix is closed, measuring 5.9 cm in length. No prolapse of parts or funneling. Right ovary measures 1.9 x 2.5 x 4.4 cm. Left ovary measures 3.2 x 2.3 x 2.7 cm. No adnexal mass. Placenta is anterior. There is no retroplacental fluid collection. The anatomic survey is incomplete. This is secondary to the age of gestation. Neural axis in the sagittal plane is suboptimally visualized. The neural axis in the axial plane is within normal limits. Cardiac activity by M-mode ultrasound is 137 beats per minute. Four-chamber heart is not definitively visualized. Both kidneys are well visualized. Extremities are normal. Facial profile image is poorly visualized. Three-vessel cord is present. Outflow tracts are poorly visualized. Incidental placental lakes. Largest vertical pocket of amniotic fluid is 5.2 cm. Measurements are as follows: Biparietal diameter: 41 mm, corresponding to gestational age of 18 weeks, 3 days. Head circumference: 160 mm, corresponding to a gestational age of 18 weeks, 6 days. Abdominal circumference: 131 mm, corresponding to a gestational age of 18 weeks, 5 days. Femur length: 31 mm, corresponding to a gestational age of 19 weeks, 3 days. Estimated weight is 267 grams (+/-39 grams). By LMP, the gestational age is 18 weeks, 1 day. By ultrasound, the gestational age is 18 weeks, 6 days, corresponding to an ultrasound LUCIA of 02/12/2020. Impression: 1. Single living intrauterine fetus. 2. The ultrasound gestational age is 18 weeks, 6 days, corresponding to an ultrasound LUCIA of 02/12/2020. 3. Limited anatomic survey, secondary to the age of gestation. Repeat examination at 20 weeks gestation is suggested. 4. There are no discrepancies between this report and the preliminary report submitted by [facility], 09/18/2019, 0043 hours. Dictated by Bg Hernandez MD @ Sep 19 2019 1:52PM Signed by Dr. Bg Hernandez @ Sep 19 2019 1:58PM
[2019-09-18 02:02] VITALS: BP 113/64; PULSE 72
== END 2019-09-18 01:15 | disposition home or self-care (01) ==
LOC: MW.ED 21:53
DX: O99.89 Other specified diseases and conditions complicating pregnancy, childbirth and the puerperium (principal); R10.30 Lower abdominal pain, unspecified; O99.512 Diseases of the respiratory system complicating pregnancy, second trimester; O99.212 Obesity complicating pregnancy, second trimester; Z68.34 Body mass index [BMI] 34.0-34.9, adult; Z3A.18 18 weeks gestation of pregnancy
CPT/HCPCS: 36415; 76810; 76810-26; 81001; 85027; 99284-25

== ENCOUNTER 2020-07-24 17:51 | Emergency (ER) | payer BC, OTHER ==
[2020-07-24 19:37] LABS: BLOOD UREA NITROGEN,BUN 9 mg/dL (7.0-18.0); CARBON DIOXIDE,CO2 27.5 mmol/L (21.0-32.0); CHLORIDE,CL 105 mmol/L (98-107); GLUCOSE RANDOM 86 mg/dL (74-106); POTASSIUM,K 3.9 mmol/L (3.5-5.1); SODIUM,NA 141 mmol/L (136-145)
[2020-07-24 20:15] VITALS: BP 132/71; PULSE 61
--- NOTE | 2020-07-24 20:19 | EDM.PDOC ---
ED HPI GENERAL MEDICAL PROBLEM - General Chief Complaint: Abdominal Pain Stated Complaint: STOMACH PAIN Time Seen by Provider: 07/24/20 18:41 Source of Information: Reports: Patient History Limitations: Reports: No Limitations - History of Present Illness INITIAL COMMENTS - FREE TEXT/NARRATIVE: Presents reporting new onset of low pelvic pain at about 5 PM this evening. She felt a little nauseous and vomited once. No fever, diarrhea, abdominal pain. Her last menstrual period was 5 months ago when she delivered her second child. She has been breast-feeding in the interim and has resumed sexual activity. She had a brown formed stool this morning. 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: Hx of Chlamydia during this Musculoskeletal History: Reports: None Neurological History: Reports: None Psychiatric History: Reports: Depression Endocrine/Metabolic History: Reports: Obesity/BMI 30+ Hematologic History: Reports: None Immunologic History: Reports: None Oncologic (Cancer) History: Reports: None Dermatologic History: Reports: None - Infectious Disease History Infectious Disease History: Reports: None, Other (See Below) - Past Surgical History HEENT Surgical History: Reports: None Respiratory Surgical History: Reports: None Female Surgical History: Reports: Section Social & Family History - Family History Family Medical History: No Pertinent Family History Dermatologic: Reports: None - Tobacco Use Tobacco Use Status *Q: Never Tobacco User - Caffeine Use Caffeine Use: Reports: Coffee - Recreational Drug Use Recreational Drug Use: No ED ROS GENERAL - Review of Systems Review Of Systems: Comprehensive ROS is negative, except as noted in HPI. ED EXAM, RENAL/ - Physical Exam Exam: See Below Exam Limited By: No Limitations General Appearance: Alert, No Apparent Distress Ears: Normal External Exam Nose: Normal Inspection Throat/Mouth: Normal Inspection Head: Atraumatic Neck: Normal Inspection Respiratory/Chest: No Respiratory Distress, Lungs Clear, Normal Breath Sounds Cardiovascular: Normal Peripheral Pulses, Regular Rate, Rhythm, No Murmur GI/Abdominal: Soft (Female) Exam: Normal External Exam, Normal Speculum Exam, Normal Bimanual Exam, Vaginal Discharge (small amount of kerr). No: Adnexal Tenderness, Cervical Dilatation, Cervix Motion Tenderness Rectal (Female) Exam: Normal Exam Back Exam: Normal Inspection Extremities: Normal Inspection, Normal Range of Motion, No Pedal Edema Neurological: Alert, Oriented Psychiatric: Normal Affect, Normal Mood Skin Exam: Warm, Dry, Intact, Normal Color, No Rash Lymphatic: No Adenopathy Course - Vital Signs Last Recorded V/S: Last Vital Signs Temp 36.7 C 07/24/20 18:12 Pulse 86 07/24/20 18:12 Resp 20 07/24/20 18:12 BP 137/77 07/24/20 18:12 Pulse Ox 99 07/24/20 18:12 - Orders/Labs/Meds Orders: Active Orders 24 hr Category Date Time Status Pelvis Non OB Comp [US] Stat Exams 07/24/20 18:38 Ordered TRICH/ANIYA/CAND BY DNA PROBE [MOLEC] Stat Lab 07/24/20 20:08 Ordered Labs: Laboratory Tests 07/24/20 07/24/20 07/24/20 Range/Units 18:44 18:44 18:55 WBC 8.30 (4.0-11.0) K/uL RBC 4.91 (4.30-5.90) M/uL Hgb 13.3 (12.0-16.0) g/dL Hct 41.7 (36.0-46.0) % MCV 84.9 (80.0-98.0) fL MCH 27.1 (27.0-32.0) pg MCHC 31.9 (31.0-37.0) g/dL RDW Std Deviation 43.1 (28.0-62.0) fl RDW Coeff of Arelis 14 (11.0-15.0) % Plt Count 310 (150-400) K/uL MPV 9.80 (7.40-12.00) fL Neut % (Auto) 61.2 (48.0-80.0) % Lymph % (Auto) 31.3 (16.0-40.0) % [place] % (Auto) 5.8 (0.0-15.0) % Eos % (Auto) 1.2 (0.0-7.0) % Baso % (Auto) 0.5 (0.0-1.5) % Neut # (Auto) 5.1 (1.4-5.7) K/uL Lymph # (Auto) 2.6 H (0.6-2.4) K/uL [place] # (Auto) 0.5 (0.0-0.8) K/uL Eos # (Auto) 0.1 (0.0-0.7) K/uL Baso # (Auto) 0.0 (0.0-0.1) K/uL Nucleated RBC % 0.0 /100WBC Nucleated RBCs # 0 K/uL Sodium (136-145) mmol/L Potassium (3.5-5.1) mmol/L Chloride (98-107) mmol/L Carbon Dioxide (21.0-32.0) mmol/L BUN (7.0-18.0) mg/dL Creatinine (0.6-1.0) mg/dL Est Cr Clr Drug Dosing mL/min Estimated GFR (MDRD) ml/min Glucose (74-106) mg/dL Calcium (8.5-10.1) mg/dL Total Bilirubin (0.2-1.0) mg/dL AST (15-37) IU/L ALT (14-63) IU/L Alkaline Phosphatase (46-116) U/L Total Protein (6.4-8.2) g/dL Albumin (3.4-5.0) g/dL Globulin (2.6-4.0) g/dL Albumin/Globulin Ratio (0.9-1.6) Urine Color YELLOW Urine Appearance CLEAR Urine pH 6.0 (5.0-8.0) Ur Specific [place] 1.025 (1.001-1.035) Urine Protein NEGATIVE (NEGATIVE) mg/dL Urine Glucose (UA) NEGATIVE (NEGATIVE) mg/dL Urine Ketones NEGATIVE (NEGATIVE) mg/dL Urine Occult Blood SMALL H (NEGATIVE) Urine Nitrite NEGATIVE (NEGATIVE) Urine Bilirubin NEGATIVE (NEGATIVE) Urine Urobilinogen 0.2 (<2.0) EU/dL Ur Leukocyte Esterase NEGATIVE (NEGATIVE) Urine RBC 1-2 (0-2/HPF) Urine WBC 0-1 (0-5/HPF) Ur Epithelial Cells RARE (NONE-FEW) Urine Bacteria RARE (NEGATIVE) Urine HCG, Qual NEGATIVE (NEGATIVE) 07/24/20 Range/Units 18:55 WBC (4.0-11.0) K/uL RBC (4.30-5.90) M/uL Hgb (12.0-16.0) g/dL Hct (36.0-46.0) % MCV (80.0-98.0) fL MCH (27.0-32.0) pg MCHC (31.0-37.0) g/dL RDW Std Deviation (28.0-62.0) fl RDW Coeff of Arelis (11.0-15.0) % Plt Count (150-400) K/uL MPV (7.40-12.00) fL Neut % (Auto) (48.0-80.0) % Lymph % (Auto) (16.0-40.0) % [place] % (Auto) (0.0-15.0) % Eos % (Auto) (0.0-7.0) % Baso % (Auto) (0.0-1.5) % Neut # (Auto) (1.4-5.7) K/uL Lymph # (Auto) (0.6-2.4) K/uL [place] # (Auto) (0.0-0.8) K/uL Eos # (Auto) (0.0-0.7) K/uL Baso # (Auto) (0.0-0.1) K/uL Nucleated RBC % /100WBC Nucleated RBCs # K/uL Sodium 141 (136-145) mmol/L Potassium 3.9 (3.5-5.1) mmol/L Chloride 105 (98-107) mmol/L Carbon Dioxide 27.5 (21.0-32.0) mmol/L BUN 9 (7.0-18.0) mg/dL Creatinine 0.8 (0.6-1.0) mg/dL Est Cr Clr Drug Dosing 100.63 mL/min Estimated GFR (MDRD) > 60.0 ml/min Glucose 86 (74-106) mg/dL Calcium 8.9 (8.5-10.1) mg/dL Total Bilirubin 0.4 (0.2-1.0) mg/dL AST 17 (15-37) IU/L ALT 30 (14-63) IU/L Alkaline Phosphatase 76 (46-116) U/L Total Protein 8.0 (6.4-8.2) g/dL Albumin 4.0 (3.4-5.0) g/dL Globulin 4.0 (2.6-4.0) g/dL Albumin/Globulin Ratio 1.0 (0.9-1.6) Urine Color Urine Appearance Urine pH (5.0-8.0) Ur Specific [place] (1.001-1.035) Urine Protein (NEGATIVE) mg/dL Urine Glucose (UA) (NEGATIVE) mg/dL Urine Ketones (NEGATIVE) mg/dL Urine Occult Blood (NEGATIVE) Urine Nitrite (NEGATIVE) Urine Bilirubin (NEGATIVE) Urine Urobilinogen (<2.0) EU/dL Ur Leukocyte Esterase (NEGATIVE) Urine RBC (0-2/HPF) Urine WBC (0-5/HPF) Ur Epithelial Cells (NONE-FEW) Urine Bacteria (NEGATIVE) Urine HCG, Qual (NEGATIVE) Departure - Departure Time of Disposition: 20:42 Disposition: Home, Self-Care 01 Condition: Good Clinical Impression: Pelvic pain - Discharge Information Referrals: PCP,Georgina [Primary Care Provider] - Quyen Pollock CNM [Mid-] - Additional Instructions: The following information is given to patients seen in the emergency department who are being discharged to home. This information is to outline your options for follow-up care. We provide all patients seen in our emergency department with a follow-up referral. The need for follow-up, as well as the timing and circumstances, are variable depending upon the specifics of your emergency department visit. If you don't have a primary care physician on staff, we will provide you with a referral. We always advise you to contact your personal physician following an emergency department visit to inform them of the circumstance of the visit and for follow-up with them and/or the need for any referrals to a consulting specialist. The emergency department will also refer you to a specialist when appropriate. This referral assures that you have the opportunity for follow-up care with a specialist. All of these measure are taken in an effort to provide you with optimal care, which includes your follow-up. Under all circumstances we always encourage you to contact your private physician who remains a resource for coordinating your care. When calling for follow-up care, please make the office aware that this follow-up is from your recent emergency room visit. If for any reason you are refused follow-up, please contact the [facility] Emergency Department at and asked to speak to the emergency department charge nurse. [facility] Smith [facility] - Primary Care [address] [place] [id number] 1. Make an appointment with your women's health provider for follow-up. 2. 2 tabs a.m. and p.m. or ibuprofen 2-3 tabs 3 times daily as needed for pain. With food. 3. We will call with results from your BV test. Sepsis Event Note (ED) - Evaluation Sepsis Screening Result: No Definite Risk - Focused Exam Vital Signs: Vital Signs Temp Pulse Resp BP Pulse Ox 07/24/20 18:12 36.7 C 86 20 137/77 99 - My Orders Last 24 Hours: My Active Orders 07/24/20 18:38 Pelvis Non OB Comp [US] Stat 07/24/20 20:08 TRICH/ANIYA/CAND BY DNA PROBE [MOLEC] Stat - Assessment/Plan Last 24 Hours: My Active Orders 07/24/20 18:38 Pelvis Non OB Comp [US] Stat 07/24/20 20:08 TRICH/ANIYA/CAND BY DNA PROBE [MOLEC] Stat
--- NOTE | 2020-07-24 20:33 | US ---
INDICATION: Midline pelvic pain. LMP not provided. TECHNIQUE: Ultrasound pelvis transvaginal. Real time sonographic images with Spectral and color Doppler imaging of the ovaries were obtained. COMPARISON: None FINDINGS: Uterus: Measures 7.4 x 5.8 x 4.1 cm. Normal echotexture of the myometrium. No masses. Endometrium: Measures 5 mm in thickness. No sign of endometrial mass or fluid. Right ovary: Measures 4.9 x 2.9 x 3.4 cm. There is a 2.3 x 1.6 x 2.1 cm heterogeneous mass which may represent a corpus luteum but does not have the typical crenulated appearance or peripheral vascularity. Normal arterial and venous blood flow. Left ovary: Measures 3.8 x 2.2 x 4.1 cm. No ovarian or adnexal masses. Normal arterial and venous blood flow. Cul-de-sac: There is a small amount of simple pelvic free fluid. IMPRESSION: 1. There is a 2.3 cm right ovarian lesion. This may represent a corpus luteum but does not have the typical appearance. Follow-up ultrasound is recommended in 6-12 weeks to evaluate for resolution. 2. No evidence of ovarian torsion. Dictated by Naya Aburto MD @ Jul 24 2020 8:24PM Signed by Dr. Naya Aburto @ Jul 24 2020 8:31PM
== END 2020-07-24 20:53 | disposition home or self-care (01) ==
LOC: MW.ED 17:51
DX: R10.2 Pelvic and perineal pain (principal); J45.909 Unspecified asthma, uncomplicated; E66.9 Obesity, unspecified; Z68.38 Body mass index [BMI] 38.0-38.9, adult
CPT/HCPCS: 36415; 76856; 76856-26; 80053; 81001; 81025; 85025; 87480; 87510; 87660; 99282; 99284-25

== ENCOUNTER 2023-07-25 19:20 | Emergency (ER) | payer BC, MEDICAID ==
[2023-07-25 19:29] VITALS: BP 154/98
[2023-07-25] MEDS ORDERED: Ondansetron 4 MG Tab.DIS PO ONE (19:29)
[2023-07-25 19:52] LABS: BILIRUBIN,URINE NEGATIVE (NEGATIVE); COLOR,URINE YELLOW; GLUCOSE,URINE NEGATIVE (NEGATIVE); KETONES,URINE NEGATIVE (NEGATIVE); LEUKOCYTE ESTERASE,URINE NEGATIVE (NEGATIVE); NITRITE,URINE NEGATIVE (NEGATIVE); OCCULT BLOOD,URINE TRACE-INTACT (NEGATIVE); PH,URINE 7.5 (5.0-8.0); PROTEIN,URINE NEGATIVE (NEGATIVE)
[2023-07-25 19:58] LABS: APPEARANCE,URINE HAZY
[2023-07-25 19:59] LABS: BACTERIA,URINE FEW (NEGATIVE); EPITHELIAL CELLS,URINE RARE (NONE-FEW); MUCUS,URINE FEW (NONE-MOD); RBC,URINE 0-2 (0-2/HPF); WBC,URINE 0-3 (0-5/HPF)
[2023-07-25 20:22] LABS: CORONAVIRUS COVID-19 NAA NEGATIVE (NEGATIVE); INFLUENZA A NAA NEGATIVE (NEGATIVE); INFLUENZA B NAA NEGATIVE (NEGATIVE)
[2023-07-25] MEDS ORDERED: Amoxicillin/Clavulanate K 875-125 MG Tab PO ONE (20:34)
[2023-07-25 20:47] VITALS: PULSE 87
== END 2023-07-25 20:46 | disposition home or self-care (01) ==
LOC: MW.ED 19:20
DX: J02.0 Streptococcal pharyngitis (principal); E66.9 Obesity, unspecified; Z68.36 Body mass index [BMI] 36.0-36.9, adult
CPT/HCPCS: 0240U; 81001; 81025; 87651; 99284; A9270

== ENCOUNTER 2023-07-30 22:32 | Emergency (ER) | payer SELFPAY ==
[2023-07-30 23:31] LABS: CORONAVIRUS COVID-19 NAA NEGATIVE (NEGATIVE); INFLUENZA A NAA NEGATIVE (NEGATIVE); INFLUENZA B NAA NEGATIVE (NEGATIVE); RESPIRATORY SYNCYTIAL VIR NAA NEGATIVE (NEGATIVE)
[2023-07-31 00:49] VITALS: BP 144/68; PULSE 76
== END 2023-07-31 00:49 | disposition home or self-care (01) ==
LOC: MW.ED 22:32
DX: B34.9 Viral infection, unspecified (principal); J45.909 Unspecified asthma, uncomplicated; E66.9 Obesity, unspecified; Z68.35 Body mass index [BMI] 35.0-35.9, adult
CPT/HCPCS: 0241U; 87651; 99283; 99282

== ENCOUNTER 2024-02-11 23:47 | Emergency (ER) | payer MEDICAID ==
[2024-02-12 00:21] LABS: BASOPHILS ABSOLUTE AUTO 0.05 K/uL (0.00-0.20); BASOPHILS PERCENT AUTO 0.5 % (0.0-1.0); EOSINOPHILS ABSOLUTE AUTO 0.03 K/uL (0.00-0.45); EOSINOPHILS PERCENT AUTO 0.3 % (0.0-6.0); HEMATOCRIT 39.5 % (37.0-47.0); HEMOGLOBIN 13.2 g/dL (12.0-16.0); IMMATURE GRAN ABSOLUTE AUTO 0.03 K/uL (0.00-0.05); IMMATURE GRAN PERCENT AUTO 0.3 % (0.0-0.4); LYMPHOCYTES PERCENT AUTO 30.5 % (24.0-44.0); MEAN CORPUSCULAR HEMOGLOBIN 27.3 pg (28.0-32.0); MEAN CORPUSCULAR HGB CONC 33.4 g/dL (32.0-36.0); MEAN CORPUSCULAR VOLUME 81.8 fL (83.0-99.0); MEAN PLATELET VOLUME 9.3 fL (9.4-12.3); MONOCYTES ABSOLUTE AUTO 0.58 K/uL (0.00-0.80); MONOCYTES PERCENT AUTO 6.1 % (0.0-8.0); NEUTROPHILS ABSOLUTE AUTO 5.93 K/uL (1.80-7.70); NEUTROPHILS PERCENT AUTO 62.3 % (41.0-71.0); PLATELET COUNT,PLT 327 K/uL (150-400); RED BLOOD CELL COUNT 4.83 M/uL (4.10-5.30); WHITE BLOOD CELL COUNT,WBC 9.52 K/uL (3.9-11.3)
[2024-02-12 01:02] LABS: A/G RATIO 0.9 (0.9-1.6); ALBUMIN 3.8 g/dL (3.4-5.0); BILIRUBIN TOTAL 0.5 mg/dL (0.2-1.0); CALCIUM 9.3 mg/dL (8.5-10.1); CARBON DIOXIDE,CO2 27.9 mmol/L (21.0-32.0); CREATININE 0.8 mg/dL (0.6-1.0); EST CRCL DRUG DOSING (CG) 97.13 mL/min; POTASSIUM,K 3.6 mmol/L (3.5-5.1); PROTEIN TOTAL,TP 7.9 g/dL (6.4-8.2)
[2024-02-12 02:03] VITALS: BP 121/65; PULSE 64
== END 2024-02-12 02:02 | disposition home or self-care (01) ==
LOC: MW.ED 23:47
DX: R07.9 Chest pain, unspecified (principal); I10 Essential (primary) hypertension; Z75.8 Other problems related to medical facilities and other health care; E66.9 Obesity, unspecified; Z68.35 Body mass index [BMI] 35.0-35.9, adult
CPT/HCPCS: 36415; 71046; 71046-26; 80053; 84484; 85025; 93005; 93010; 99284; 99285-25

== ENCOUNTER 2024-08-15 13:28 | Emergency (ER) | payer BC ==
[2024-08-15 14:20] VITALS: BP 154/86; PULSE 68
[2024-08-15 15:45] LABS: APPEARANCE,URINE CLEAR; BILIRUBIN,URINE NEGATIVE (NEGATIVE); COLOR,URINE YELLOW; GLUCOSE,URINE NEGATIVE (NEGATIVE); KETONES,URINE NEGATIVE (NEGATIVE); LEUKOCYTE ESTERASE,URINE NEGATIVE (NEGATIVE); NITRITE,URINE NEGATIVE (NEGATIVE); OCCULT BLOOD,URINE SMALL (NEGATIVE); PH,URINE 5.5 (5.0-8.0); PROTEIN,URINE NEGATIVE (NEGATIVE); UROBILINOGEN,URINE 0.2 EU/dL (<2.0)
[2024-08-15 15:59] LABS: EPITHELIAL CELLS,URINE MODERATE (NONE-FEW); RBC,URINE 0-1 (0-2/HPF); WBC,URINE 0-2 (0-5/HPF)
[2024-08-15 16:00] LABS: BACTERIA,URINE FEW (NEGATIVE)
== END 2024-08-15 16:53 | disposition left against medical advice (07) ==
LOC: MW.ED 13:28
DX: Z53.21 Procedure and treatment not carried out due to patient leaving prior to being seen by health care provider (principal)
CPT/HCPCS: 81001; 81025

== ENCOUNTER 2024-08-28 23:14 | Emergency (ER) | payer BC ==
[2024-08-29] MEDS ORDERED: Sodium Chloride 0.9% 2.5 ML Syringe FLUSH PRN (00:19)
[2024-08-29] MEDS: Ondansetron 4 MG/2 ML SDV IVPUSH ONE (01:05)
[2024-08-29] MEDS: Famotidine 20 MG/2 ML SDV IVPUSH ONE (01:05)
[2024-08-29] MEDS: Sodium Chloride 0.9% 10 ML Syringe FLUSH PRN (01:05)
[2024-08-29] MEDS: Sodium Chloride 0.9% 1,000 ML IV SCH (01:05)
[2024-08-29 01:10] LABS: APPEARANCE,URINE CLEAR; BILIRUBIN,URINE NEGATIVE (NEGATIVE); COLOR,URINE YELLOW; GLUCOSE,URINE NEGATIVE (NEGATIVE); KETONES,URINE NEGATIVE (NEGATIVE); LEUKOCYTE ESTERASE,URINE NEGATIVE (NEGATIVE); NITRITE,URINE NEGATIVE (NEGATIVE); OCCULT BLOOD,URINE TRACE-INTACT (NEGATIVE); PROTEIN,URINE NEGATIVE (NEGATIVE); UROBILINOGEN,URINE 0.2 EU/dL (<2.0)
[2024-08-29 01:17] LABS: BACTERIA,URINE RARE (NEGATIVE); EPITHELIAL CELLS,URINE MODERATE (NONE-FEW); WBC,URINE 0-1 (0-5/HPF)
[2024-08-29 01:20] LABS: BASOPHILS ABSOLUTE AUTO 0.04 K/uL (0.00-0.20); BASOPHILS PERCENT AUTO 0.4 % (0.0-1.0); EOSINOPHILS ABSOLUTE AUTO 0.11 K/uL (0.00-0.45); EOSINOPHILS PERCENT AUTO 1.2 % (0.0-6.0); HEMATOCRIT 40.3 % (37.0-47.0); HEMOGLOBIN 13.6 g/dL (12.0-16.0); IMMATURE GRAN ABSOLUTE AUTO 0.04 K/uL (0.00-0.05); IMMATURE GRAN PERCENT AUTO 0.4 % (0.0-0.4); LYMPHOCYTES ABSOLUTE AUTO 4.25 K/uL (1.00-4.80); LYMPHOCYTES PERCENT AUTO 44.8 % (24.0-44.0); MEAN CORPUSCULAR HEMOGLOBIN 27.8 pg (28.0-32.0); MEAN CORPUSCULAR HGB CONC 33.7 g/dL (32.0-36.0); MEAN CORPUSCULAR VOLUME 82.4 fL (83.0-99.0); MEAN PLATELET VOLUME 10.1 fL (9.4-12.3); MONOCYTES ABSOLUTE AUTO 0.58 K/uL (0.00-0.80); MONOCYTES PERCENT AUTO 6.1 % (0.0-8.0); NEUTROPHILS ABSOLUTE AUTO 4.47 K/uL (1.80-7.70); NEUTROPHILS PERCENT AUTO 47.1 % (41.0-71.0); PLATELET COUNT,PLT 299 K/uL (150-400); RED BLOOD CELL COUNT 4.89 M/uL (4.10-5.30); WHITE BLOOD CELL COUNT,WBC 9.49 K/uL (3.9-11.3)
[2024-08-29 01:40] LABS: A/G RATIO 1.1 (0.9-1.6); BILIRUBIN TOTAL 0.6 mg/dL (0.2-1.0); CALCIUM 9.5 mg/dL (8.5-10.1); CARBON DIOXIDE,CO2 25.9 mmol/L (21.0-32.0); CREATININE 0.9 mg/dL (0.6-1.0); EST CRCL DRUG DOSING (CG) 86.34 mL/min; POTASSIUM,K 4.7 mmol/L (3.5-5.1); PROTEIN TOTAL,TP 7.8 g/dL (6.4-8.2)
[2024-08-29] MEDS: Ketorolac 30 MG/ML SDV IVPUSH ONE (02:06)
[2024-08-29 04:36] VITALS: BP 116/68; PULSE 64
== END 2024-08-29 04:24 | disposition home or self-care (01) ==
LOC: MW.ED 23:14
DX: R10.11 Right upper quadrant pain (principal); R10.13 Epigastric pain; J45.909 Unspecified asthma, uncomplicated; E66.9 Obesity, unspecified; Z68.34 Body mass index [BMI] 34.0-34.9, adult; Z79.899 Other long term (current) drug therapy
CPT/HCPCS: 36415; 76705; 80053; 81001; 81025; 83690; 85025; 96361; 96374; 96375; 99284; J2405; J7030

== ENCOUNTER 2024-09-29 10:05 | Day surgery (SDC) | payer BC ==
[~2024-09-29 10:05] MED LIST: Sodium Chloride 0.9% 10 ML Syringe FLUSH PRN; Sodium Chloride 0.9% 2.5 ML Syringe FLUSH PRN; Sodium Chloride 0.9% 20 ML SDV IV PRN
[2024-09-29] MEDS: Lactated Ringers 1,000 ML IV SCH (10:30)
[2024-09-29] MEDS ORDERED: propofoL 500 MG/50 ML 50 ML ONE (11:39)
[2024-09-29] MEDS ORDERED: Lidocaine 2% 5 ML SDV ONE (11:39)
[2024-09-29] MEDS ORDERED: Glycopyrrolate 0.2 MG/ML SDV ONE (12:17)
[2024-09-29 13:16] VITALS: BP 101/64; PULSE 69
== END 2024-09-29 13:30 | disposition home or self-care (01) ==
LOC: MW.SDS 10:05
PROVIDERS: ATTEND Surgery
DX: R10.9 Unspecified abdominal pain (principal); G89.29 Other chronic pain; E66.9 Obesity, unspecified; Z68.35 Body mass index [BMI] 35.0-35.9, adult; F15.10 Other stimulant abuse, uncomplicated; J45.909 Unspecified asthma, uncomplicated; K21.9 Gastro-esophageal reflux disease without esophagitis; Z79.899 Other long term (current) drug therapy
CPT/HCPCS: 43239; 45380; 81025; J1596; J2003; J2704; J7120; 00813

== ENCOUNTER 2024-12-15 10:03 | Day surgery (SDC) | payer BC ==
[2024-12-15] MEDS ORDERED: Propofol 200 MG/20 ML SDV ONE ×2 (11:00→11:20)
[2024-12-15] MEDS ORDERED: Lidocaine 2% 5 ML SDV ONE (11:01)
[2024-12-15] MEDS: Lactated Ringers 1,000 ML IV SCH (11:05)
[2024-12-15 11:52] VITALS: PULSE 65
[2024-12-15 11:55] VITALS: BP 127/70
== END 2024-12-15 12:13 | disposition home or self-care (01) ==
LOC: MW.SDS 10:03
PROVIDERS: ATTEND Surgery
DX: K29.50 Unspecified chronic gastritis without bleeding (principal); B96.81 Helicobacter pylori [H. pylori] as the cause of diseases classified elsewhere; E66.9 Obesity, unspecified; Z68.30 Body mass index [BMI] 30.0-30.9, adult; Z79.899 Other long term (current) drug therapy
CPT/HCPCS: 00731; 81025; J2003; J2704; J7120